=== PATIENT | male | born 1980 | race Caucasian/White ===

== ENCOUNTER 2023-06-27 18:51 | Emergency (ER) | payer SELFPAY ==
--- NOTE | ~2023-06-27 | CT_ITS ---
EXAMINATION: CT head/brain wo IV con CLINICAL INFORMATION: Reason for Exam change in mental status COMPARISON: None. TECHNIQUE: Contiguous axial imaging was performed from the skull base to vertex without intravenous contrast. Sagittal and coronal reformatted images were obtained. This CT examination was performed using dose optimization techniques as appropriate, variously including the following: * Automated exposure control * Adjustment of mA and/or kV according to patient size (this includes techniques or standardized protocols for targeted exams where dose is matched to indication/reason for exam; i.e. extremities or head) Use of iterative reconstruction technique DLP: 715 mGy-cm FINDINGS: The ventricles and sulci are normal in size and configuration without significant volume loss or hydrocephalus. Apparent hypodensity in the right cerebellar white matter is presumably artifactual with streak artifact through this region. No territorial loss of sriavstava-white differentiation. No acute intracranial hemorrhage or extra-axial fluid collection. No mass lesion, significant mass effect, or herniation pattern. The orbits are grossly normal. Paranasal sinuses and mastoid air cells are well aerated. Osseous structures are intact. CT/CT head/brain wo IV con IMPRESSION: Apparent hypodensity in the right cerebellar white matter is presumably artifactual with streak artifact through this region. Otherwise, no acute intracranial abnormality. Specifically, no CT evidence of acute intracranial hemorrhage, significant mass effect, hydrocephalus, or large territorial infarction.
--- NOTE | ~2023-06-27 | XR_ITS ---
EXAMINATION: XR HAND, RIGHT CLINICAL INFORMATION: Swelling. Bruising. COMPARISON: None available. TECHNIQUE: PA, lateral, and oblique views of the right hand. FINDINGS: The bones and soft tissues are normal. No fracture. Alignment is anatomic. Joint spaces are maintained. No erosions or soft tissue calcifications. XR/XR hand RT min 3V IMPRESSION: Normal right hand.
[2023-06-27 19:03] VITALS: BP 145/81; PULSE 105; RESP 22; O2SAT 93; BMI 24.4
--- NOTE | 2023-06-27 19:11 | ECG_ITS ---
Test Reason : OVERDOSE Blood Pressure : / mmHG Vent. Rate : 085 BPM Atrial Rate : 085 BPM P-R Int : 186 ms QRS Dur : 086 ms QT Int : 394 ms P-R-T Axes : 072 054 051 degrees QTc Int : 468 ms Normal sinus rhythm Normal ECG No previous ECGs available Referred By: Harriett Rico Electronically Signed By:
--- NOTE | 2023-06-27 19:19 | ED.PSYCH ---
HPI - Psych General Chief Complaint: ETOH/Substance Use Stated Complaint: ?PCP USE,DIAPHORETIC Time Seen by Provider: 06/27/23 18:54 Source: patient and EMS Mode of arrival: EMS Limitations: other (intoxicated) History of Present Illness HPI Narrative: 40 yo male who was found yelling in streets, has crack pipe in his pocket found by me, he admits to smoking reportedly initially was agitated then laid down on the stretcher and was calm with EMS. on arrival to ED he is agitated making odd noises and dancing around. MD complaint: substance abuse Onset (ago): unknown Duration: constant History of same: Yes Relieving factors: none Exacerbating factors: drug use Context: recent drug abuse Associated psychiatric symptoms: none Associated symptoms: denies other symptoms Treatments prior to arrival: physical restraints and other (IVF 250NS) Related Data Allergies Allergy/AdvReac Type Severity Reaction Status Date / Time No Known Allergies Allergy Verified 06/27/23 19:11 Review of Systems Review of Systems: ROS unable to be obtained due to intoxication [facility] Past Medical History Medical History Active substance abuse Social History Social History (Updated 06/27/23 @ 19:21 by Harriett Rico DO) Patient Tobacco Use Status: Current everyday Tobacco user Substance Use Type: Crack/Cocaine and Marijuana Physical Exam Vital Signs: Vital Signs: Last Vital Signs Temp 99.6 F 06/28/23 00:15 Pulse 72 06/28/23 00:15 Resp 18 06/28/23 00:15 BP 110/66 06/28/23 00:15 Pulse Ox 95 06/28/23 00:15 O2 Del Method Nasal Cannula 06/28/23 00:15 O2 Flow Rate 1 06/28/23 00:15 BMI result Body Mass Index 24.4 Appearance: Alert. Oriented X2. Making odd noises, dancing around, calm mild acute distress. Crack pipe in R pocket Eyes: Pupils equal, round and reactive to light. ENT: Pharynx normal. atraumatic Neck: Normal inspection. Neck supple. CVS: Normal heart rate and rhythm. Pulses normal. Respiratory: No respiratory distress. Breath sounds normal. Abdomen: Soft and nontender. Skin: Skin warm and dry. Normal skin color. Normal skin turgor. Extremities: No lower extremity edema. R hand contusions to MCPs normal ROM Neuro: Oriented X2. No motor deficit. No sensory deficit. Course Course Course Narrative: improved after IV ativan Reevaluation(s) Reevaluation #1: BS low IV dextrose ordered along with gtt Reevaluation #2: CPK trending down Reevaluation #3: signed out to Dr. Patton pending re-eval Medications Administered Generic Name Dose Route Start Last Admin Trade Name Freq PRN Reason Stop Dose Admin Dextrose 250 mls @ 750 mls/hr 06/27/23 20:01 06/27/23 20:32 D10 IV Infused Q15M PRN Infusion per Hypoglycemia Standing Ord. Dextrose/Sodium Chloride 1,000 mls @ 100 mls/hr 06/27/23 20:15 06/27/23 20:29 D5ns IVCONT 100 mls/hr .Q10H LUCÍA Administration Discontinued Medications Generic Name Dose Route Start Last Admin Trade Name Freq PRN Reason Stop Dose Admin Sodium Chloride 1,000 mls @ 999 mls/hr 06/27/23 19:15 06/27/23 20:32 Ns IV 06/27/23 20:15 Infused .Q1H1M LUCÍA Infusion Sodium Chloride 1,000 mls @ 999 mls/hr 06/27/23 20:15 06/27/23 21:35 Ns IV 06/27/23 21:15 Infused .Q1H1M LUCÍA Infusion Lorazepam 2 mg 06/27/23 19:11 06/27/23 19:25 Lorazepam 2 Mg/Ml Vial IVPUSH 06/27/23 19:12 2 mg ONCE ONE Administration Lorazepam 2 mg 06/27/23 21:50 06/27/23 22:22 Lorazepam 2 Mg/Ml Vial IVPUSH 06/27/23 21:51 2 mg ONCE ONE Administration Medical Decision Making Medical Decision Making MDM Narrative: 40 yo male with drug use no signs of head trauma able to answer questions though intoxicated at this time given crack pipe found on him and agitation I am going to order labs, IVF and IV ativan to prevent any further harm or issues. Suspect intoxication from either crack or PCP. Differential Diagnosis Differential Diagnoses: The differential diagnosis associated with the presentation includes drug abuse Admission/Observation Consideration of admission/observation: Escalation of care including admission/observation considered observe until patient more clinically sober and appropriate physician observation started at 1am pending sobriety Lab Data [facility] Lab Attestation statement: I reviewed the patient's lab results. 06/27/23 19:31 06/27/23 19:31 Labs: Lab Results 06/27/23 06/27/23 06/28/23 Range/Units 19:31 20:36 00:40 WBC 12.1 H (4.8-10.8) X10*3/uL RBC 4.54 L (4.60-5.80) X10*6/uL Hgb 13.9 L (14.0-18.0) g/dl Hct 41.8 L (42.0-52.0) % MCV 92.1 (80.0-98.0) fL MCH 30.6 (27.0-33.0) pg MCHC 33.3 (31.0-36.0) g/dl RDW 12.6 (11.0-16.0) % Plt Count 308 (160-400) X10*3/uL MPV 8.5 L (9.4-12.4) fL Immature Gran % (Auto) 0.4 (0.0-0.4) % Neut % (Auto) 69.0 (45-73) % Lymph % (Auto) 20.3 (20-40) % [place] % (Auto) 8.7 (2-11) % Eos % (Auto) 1.4 (0-4) % Baso % (Auto) 0.2 (0-2) % Lymph # (Auto) 2.5 (1.2-4.9) X10*3/uL [place] # (Auto) 1.1 (0.1-1.2) X10*3/uL Eos # (Auto) 0.2 (0.0-0.4) X10*3/uL Baso # (Auto) 0.0 (0.0-0.2) X10*3/uL Abs Immat Gran (auto) 0.05 H (0.00-0.03) X10*3/uL Absolute Neuts (auto) 8.4 H (2.0-8.3) x10*3/uL Absolute Nucleated RBC 0.000 (0.0-0.012) X10*3/uL Nucleated RBC % (auto) 0.0 (0.0-0.2) /100WBC Sodium 142 (135-145) mmol/L Potassium 4.4 (3.3-5.1) mmol/L Chloride 102 (96-108) mmol/L Carbon Dioxide 27 (22-29) mmol/L Anion Gap 17 (12-20) BUN 17 H (9-16) mg/dL Creatinine 1.00 (0.5-1.4) mg/dL Estim Creat Clear Calc 104.5 Estimated GFR > 60 POC Glucose 126 H (60-115) mg/dL Random Glucose 41 L* (60-115) mg/dL Calcium 9.9 (8.4-10.2) mg/dL Magnesium 2.2 (1.6-2.6) mg/dL Total Bilirubin 0.9 (0.0-1.0) mg/dL Direct Bilirubin 0.3 (0.0-0.5) mg/dL AST 46 H (5-37) U/L ALT 17 (0-40) U/L Alkaline Phosphatase 50 (39-117) U/L Total Creatine Kinase 1206 H 918 H (38-174) U/L Total Protein 8.2 H (6.5-8.0) g/dL Albumin 4.6 (3.5-5.0) g/dL Ethyl Alcohol < 10 mg/dL Independent Interpretation I performed an independent interpretation of an: EKG, Plain X-Ray (no fracture) and CT Scan (no ICH) Interpretation: Rate: 85 Rhythm: NSR [place]: normal Normal P waves. Normal SABA. Normal QRS complex. ST T wave : normal no [place] qTC: 468 prior studies: no acute ischemia The study has been interpreted contemporaneously by me. . Radiology Impression Discussion of test interpretation with radiology: I have reviewed the radiologist's reading. Independent Historian Clinical information obtained from an independent historian. History obtained from or confirmed by: EMS Critical Care Time Critical Care Time Critical Care Time: Yes Total Critical Care Time: 60 Attestation: repeat IV ativan for control of abnormal behaviors, IV glucose repletions, IVF x 2L, repeat assessments I attest to this time spent taking care of the patient Discharge Plan Discharge Clinical Impression: Polysubstance abuse, Hypoglycemia Rhabdomyolysis Qualifiers: Rhabdomyolysis type: non-traumatic Qualified Code(s): M62.82 - Rhabdomyolysis Patient Disposition: Still a Patient
[2023-06-27] MEDS: LORazepam 2 MG/ML VIAL IVPUSH ×2 (19:25→22:22)
[2023-06-27] MEDS: 0.9 % Sodium Chloride 1,000 ML 999 ML IV ×2 (19:32→20:29)
--- NOTE | 2023-06-27 19:33 | PC.NURSE ---
pt yelling, jumping on and off the stretcher. pt medicated per MAR, IV placed to LAC. labs obtained, NS started
[2023-06-27 19:35] LABS: MANUAL DIFF FLAG NO
[2023-06-27 19:36] LABS: Basophils Percent Auto 0.2 % (0-2); Eosinophils Absolute Auto 0.2 X10*3/uL (0.0-0.4); Eosinophils Percent Auto 1.4 % (0-4); Hematocrit 41.8 % (42.0-52.0); Hemoglobin 13.9 g/dl (14.0-18.0); Imm Gran Abs Auto 0.05 X10*3/uL (0.00-0.03); Imm Gran Pct Auto 0.4 % (0.0-0.4); Lymphocytes Absolute Auto 2.5 X10*3/uL (1.2-4.9); Lymphocytes Percent Auto 20.3 % (20-40); Mean Corpuscular HGB Conc 33.3 g/dl (31.0-36.0); Mean Corpuscular Hemoglobin 30.6 pg (27.0-33.0); Mean Corpuscular Volume 92.1 fL (80.0-98.0); Mean Platelet Volume 8.5 fL (9.4-12.4); Monocytes Absolute Auto 1.1 X10*3/uL (0.1-1.2); Monocytes Percent Auto 8.7 % (2-11); Neutrophils Absolute Auto 8.4 x10*3/uL (2.0-8.3); Platelet Count 308 X10*3/uL (160-400); Red Blood Count 4.54 X10*6/uL (4.60-5.80); Red Cell Distribution Width 12.6 % (11.0-16.0); White Blood Count 12.1 X10*3/uL (4.8-10.8)
--- NOTE | 2023-06-27 19:56 | PC.NURSE ---
place pt on 2L NC. 91% on RA. 2L 02 98%
[2023-06-27 19:59] VITALS: BP 108/54; PULSE 95; RESP 20; O2SAT 98
[2023-06-27 20:02] LABS: Alanine Aminotransferase 17 U/L (0-40); Albumin Level 4.6 g/dL (3.5-5.0); Alkaline Phosphatase 50 U/L (39-117); Anion Gap 17 (12-20); Aspartate Amino Transferase 46 U/L (5-37); Bilirubin Direct 0.3 mg/dL (0.0-0.5); Bilirubin Total 0.9 mg/dL (0.0-1.0); Blood Urea Nitrogen 17 mg/dL (9-16); Calcium 9.9 mg/dL (8.4-10.2); Carbon Dioxide 27 mmol/L (22-29); Chloride 102 mmol/L (96-108); Creatinine Clr Calc Pharmacy 104.5; Estimated Glomerular Filt Rate > 60; Ethanol < 10 mg/dL; Glucose Random 41 mg/dL (60-115); Magnesium 2.2 mg/dL (1.6-2.6); Potassium 4.4 mmol/L (3.3-5.1); Sodium 142 mmol/L (135-145); Total Protein 8.2 g/dL (6.5-8.0)
[2023-06-27] MEDS: Dextrose 10 % 250 ML 750 ML IV (20:04)
--- NOTE | 2023-06-27 20:19 | PC.NURSE ---
pt at CT/XR
[2023-06-27] MEDS: Dextrose 5 % and 0.9 % NaCl 1,000 ML 100 ML IVCONT (20:29)
[2023-06-27 20:40] LABS: Glucose, Whole Blood 126 mg/dL (60-115)
[2023-06-27 21:02] VITALS: BP 110/62; PULSE 82; RESP 18; O2SAT 96
--- NOTE | 2023-06-27 21:52 | PC.NURSE ---
pt awake, yelling and flailing limbs. pt settled down after a few minutes, now resting with eyes closed, breathing even and unlabored 2L nc. no distress noted
[2023-06-27 23:00] VITALS: BP 109/65; PULSE 80; RESP 20; O2SAT 95
[2023-06-28] VITALS (8 sets, daily range): BP systolic 105–120; BP diastolic 60–81; PULSE 66–96; RESP 14–19; TEMP 36.7–37.6; O2SAT 95–100
--- NOTE | 2023-06-28 02:28 | PC.NURSE ---
pt resting comfortably with eyes closed, breathing even and unlabored, no apparent distress noted. call ambriz w/in reach
--- NOTE | 2023-06-28 06:15 | MHC.EDTECH ---
pt scratched his arm, IV was removed by pt, he stated that it was bothering him. Charge nurse was made aware. Pt was walked to bathroom and was able to converse with this tech, nurses and registration.
--- NOTE | 2023-06-28 06:19 | PC.NURSE ---
CIWA completed. pt awake and denies alcohol use, report heroin use and marijuana only
[2023-06-28 06:29] LABS: Amphetamine Screen Urine Not Detected (Not Detect); Barbiturates, Urine Not Detected (Not Detect); Benzodiazepines Screen Urine Not Detected (Not Detect); Buprenorphine Scr Positive (Not Detect); Cannabinoid Screen Urine POSITIVE (Not Detect); Cocaine Screen Urine POSITIVE (Not Detect); Fentanyl, urine POSITIVE (Not Detect); Methadone Screen, Urine Not Detected (Not Detect); Opiate Screen Urine POSITIVE (Not Detect); Oxycodone Screen Urine Not Detected (Not Detect); Phencyclidine Screen Urine Not Detected (Not Detect)
[2023-06-28 07:01] LABS: Glucose, Whole Blood 67 mg/dL (60-115)
--- NOTE | 2023-06-28 07:02 | PC.NURSE ---
no IV assess at this time. pt removed IV
[2023-06-28] MEDS: Dextrose 5 % and 0.9 % NaCl 1,000 ML 100 ML IVCONT (07:19)
--- NOTE | 2023-06-28 07:22 | PC.NURSE ---
Resumed care of patient, was told that he has self removed multiple IV throughout the night. This RN talked with provider, and d/t lab work new IV placed to continue D5NS per MAR order. Pt awoke to name, was able to answer some questions this morning. He did not know where he was or what hapopened last night, pt reports using polysubstances for years, this RN asked if he would be interested in talking with someone about detox however pt said no. PO food offered and brought to patient at this time. IV wrapped in gauze pt educated to not remove IV.
[2023-06-28 09:54] LABS: Glucose, Whole Blood 78 mg/dL (60-115)
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
[2023-06-28] MEDS: Buprenorphine/Naloxone 8/2 mg FILM 1 FILM SUBLINGUAL ×2 (14:47)
[2023-06-28 15:27] LABS: Alanine Aminotransferase 12 U/L (0-40); Albumin Level 3.4 g/dL (3.5-5.0); Alkaline Phosphatase 40 U/L (39-117); Anion Gap 12 (12-20); Aspartate Amino Transferase 28 U/L (5-37); Bilirubin Total 0.6 mg/dL (0.0-1.0); Blood Urea Nitrogen 7 mg/dL (9-16); Calcium 8.3 mg/dL (8.4-10.2); Carbon Dioxide 23 mmol/L (22-29); Chloride 109 mmol/L (96-108); Creatinine Clr Calc Pharmacy 148.5; Estimated Glomerular Filt Rate > 60; Glucose Random 87 mg/dL (60-115); Potassium 3.5 mmol/L (3.3-5.1); Sodium 140 mmol/L (135-145); Total Protein 6.2 g/dL (6.5-8.0)
--- NOTE | 2023-06-28 15:51 | MHC.RECOVRN ---
Followed up with pt after Suboxone initiation. Pt visibly less diaphoretic, reports feeling better. Pt requesting to discharge. Pt provided with [facility] information, has follow up appt on 07/02 at 1:45PM. Pt denies questions or concerns. Discussed with provider, rx sent to pharmacy.
--- NOTE | 2023-06-28 15:54 | PC.NURSE ---
assumed care of pt at 1500. pt requesting to go home. ripped out IV with D5NS running. pt awaiting retrieving belongings from .
== END 2023-06-28 15:58 | disposition home or self-care (01) ==
PROVIDERS: Physician Assistant Medical; Emergency Provider Emergency Medicine
DX: F14.188 Cocaine abuse with other cocaine-induced disorder (principal); M62.82 Rhabdomyolysis; R51.9 Headache, unspecified; R11.2 Nausea with vomiting, unspecified; E16.2 Hypoglycemia, unspecified; F14.10 Cocaine abuse, uncomplicated; F12.10 Cannabis abuse, uncomplicated; F17.210 Nicotine dependence, cigarettes, uncomplicated; Z79.899 Other long term (current) drug therapy; Z71.51 Drug abuse counseling and surveillance of drug abuser; Z79.891 Long term (current) use of opiate analgesic
CPT/HCPCS: 36415; 70450; 73130; 80048; 80053; 80076; 80307; 82550; 82947; 83735; 85025; 93005; 96361; 96365; 96366; 96375; 96376; 99285; J2060

== ENCOUNTER 2023-07-02 13:09 | Emergency (ER) | payer SELFPAY ==
--- NOTE | ~2023-07-02 | CT_ITS ---
EXAMINATION: CT HEAD WITHOUT CONTRAST CLINICAL INFORMATION: Head injury. COMPARISON: None available. TECHNIQUE: Contiguous axial imaging was performed from the skull base to vertex without intravenous administration of contrast. This CT examination was performed using dose optimization techniques as appropriate, variously including the following: *Automated exposure control *Adjustment of mA and/or kV according to patient size (this includes techniques or standardized protocols for targeted exams where dose is matched to indication/reason for exam; i.e. extremities or head) *Use of iterative reconstruction technique DLP: 632 mGy-cm FINDINGS: There is no acute intracranial hemorrhage. There is no evidence of acute/subacute cerebral or cerebellar infarction. There is no mass effect or midline shift. There is no extra-axial fluid collection. The ventricles are normal in size. The orbits are symmetric and within normal limits. The calvarium is intact. The mastoid air cells are well aerated. The visualized paranasal sinuses are clear. CT/CT head/brain wo IV con IMPRESSION: Normal noncontrast head CT. No acute intracranial abnormality.
--- NOTE | ~2023-07-02 | CT_ITS ---
EXAMINATION: CT CERVICAL SPINE WITHOUT CONTRAST CLINICAL INFORMATION: Head trauma. Altered mental state. COMPARISON: None available. TECHNIQUE: Noncontrast CT of the cervical spine was performed. This CT examination was performed using dose optimization techniques as appropriate, variously including the following: *Automated exposure control *Adjustment of mA and/or kV according to patient size (this includes techniques or standardized protocols for targeted exams where dose is matched to indication/reason for exam; i.e. extremities or head) *Use of iterative reconstruction technique DLP: 267 mGy-cm FINDINGS: Vertebral body alignment is anatomic in the sagittal projection. The facet joints demonstrate anatomic alignment. Vertebral bodies demonstrate preserved stature. There is no evidence of compression deformity. There are anterior osteophytes arising from the C3, C4, and C5 vertebral bodies. Intervertebral disc space heights are preserved. The prevertebral soft tissue is normal in appearance. The C1-C2 relationship is anatomic. The dens is intact. The paraspinal soft tissue is normal in appearance. The visualized lung apices are clear. The thyroid gland is normal in appearance. CT/CT cervical spine wo IV con IMPRESSION: No acute osseous cervical spine abnormality. There is mild degenerative disease as described. Fleischner guidelines were followed.
[2023-07-02 13:10] VITALS: BP 135/76; PULSE 76; O2SAT 98
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
[2023-07-02 13:22] VITALS: BMI 21.0
[2023-07-02] MEDS: Midazolam HCl 5 MG/ML VIAL 10 MG IM (13:36)
[2023-07-02] MEDS: OLANZapine 10 MG VIAL IM (13:36)
[2023-07-02 14:02] VITALS: BP 138/86; PULSE 89; RESP 15; TEMP 37.9; O2SAT 99
--- NOTE | 2023-07-02 14:04 | MHC.EDTECH ---
pt came in with a head laceration. MD requested head to be cleaned for examination. Cleaned wound and MD stapled head laceration. pt cleaned up further after darcy.
[2023-07-02 14:24] LABS: MANUAL DIFF FLAG NO
[2023-07-02 14:27] LABS: Basophils Percent Auto 0.1 % (0-2); Eosinophils Percent Auto 0.1 % (0-4); Hematocrit 38.6 % (42.0-52.0); Hemoglobin 13.2 g/dl (14.0-18.0); Imm Gran Abs Auto 0.09 X10*3/uL (0.00-0.03); Imm Gran Pct Auto 0.5 % (0.0-0.4); Lymphocytes Absolute Auto 1.3 X10*3/uL (1.2-4.9); Lymphocytes Percent Auto 7.6 % (20-40); Mean Corpuscular HGB Conc 34.2 g/dl (31.0-36.0); Mean Corpuscular Hemoglobin 30.5 pg (27.0-33.0); Mean Corpuscular Volume 89.1 fL (80.0-98.0); Mean Platelet Volume 8.7 fL (9.4-12.4); Monocytes Absolute Auto 1.3 X10*3/uL (0.1-1.2); Monocytes Percent Auto 7.8 % (2-11); Neutrophils Absolute Auto 14.3 x10*3/uL (2.0-8.3); Neutrophils Percent Auto 83.9 % (45-73); Platelet Count 287 X10*3/uL (160-400); Red Blood Count 4.33 X10*6/uL (4.60-5.80); Red Cell Distribution Width 12.2 % (11.0-16.0); White Blood Count 17.1 X10*3/uL (4.8-10.8)
[2023-07-02 14:48] LABS: Ethanol < 10 mg/dL
[2023-07-02 14:51] LABS: Alanine Aminotransferase 38 U/L (0-40); Albumin Level 4.2 g/dL (3.5-5.0); Alkaline Phosphatase 48 U/L (39-117); Anion Gap 21 (12-20); Aspartate Amino Transferase 125 U/L (5-37); Bilirubin Direct 0.3 mg/dL (0.0-0.5); Bilirubin Total 1.1 mg/dL (0.0-1.0); Blood Urea Nitrogen 23 mg/dL (9-16); Calcium 9.6 mg/dL (8.4-10.2); Carbon Dioxide 24 mmol/L (22-29); Chloride 100 mmol/L (96-108); Creatinine Clr Calc Pharmacy 82.7; Estimated Glomerular Filt Rate > 60; Glucose Random 82 mg/dL (60-115); Potassium 3.9 mmol/L (3.3-5.1); Sodium 141 mmol/L (135-145); Total Protein 7.5 g/dL (6.5-8.0)
--- NOTE | 2023-07-02 16:32 | PC.NURSE ---
MD Kincaid repaired scalp laceration w/ 3 darcy, pt tolerated procedure well after medication administration- labs obtained, CT scan taken. spO2 monitor in place Spo2 100% 68bpm
[2023-07-02 21:07] VITALS: BP 154/80; PULSE 69; RESP 16; TEMP 38.1; O2SAT 96
--- NOTE | 2023-07-02 21:51 | PC.NURSE ---
pt remains in emergency dept, pt has been sleeping since administration of versed and zyprexa, pt rousable to verbal/ tactile stimuli, cooperative with care. pt minimally contributory for assessments. assessments delayed until pt is more awake.
[2023-07-02 23:39] VITALS: BP 133/73; PULSE 73; RESP 16; TEMP 37.2; O2SAT 99
--- NOTE | 2023-07-03 01:02 | PC.NURSE ---
pt resting quietly with eyes closed, breathing even and unlabored. no apparent distress noted at this time
[2023-07-03 02:56] VITALS: BP 146/74; PULSE 82; RESP 16; TEMP 36.9; O2SAT 100
[2023-07-03 04:12] LABS: Appearance Urine Clear; Color Urine Yellow; Glucose Urine UA Negative (Negative); Leukocyte Esterase Urine Negative (Negative); Nitrite Urine Negative (Negative); PH 5.5 (5.0-9.0); Specific Gravity - Urine >= 1.030 (1.005-1.025); UMIC TRIGGER UACC YES; Urine Blood Negative (Negative); Urine Ketones 80 mg/dL (Negative); Urine Protein 30 (1+) mg/dL (Neg-Trace)
[2023-07-03 04:16] LABS: Bacteria Urine None Seen (None Seen); Hyaline Casts Urine 0-2 /LPF (0-2); RBC Urine 0-2 /HPF (0-2); Squamous Epithelial Cell Urine 0-2 /HPF (0-2); WBC Urine 0-5 /HPF (0-5)
--- NOTE | 2023-07-03 04:16 | MHC.EDTECH ---
Pt up to bathroom, urine sample obtained and sent to lab. Pts stretcher cleaned with new linen. OK to eat per RN and Pt given sandwich and 2 apple juices.
[2023-07-03 04:22] LABS: Amphetamine Screen Urine Not Detected (Not Detect); Barbiturates, Urine Not Detected (Not Detect); Benzodiazepines Screen Urine POSITIVE (Not Detect); Buprenorphine Scr Positive (Not Detect); Cannabinoid Screen Urine POSITIVE (Not Detect); Cocaine Screen Urine POSITIVE (Not Detect); Fentanyl, urine POSITIVE (Not Detect); Methadone Screen, Urine Not Detected (Not Detect); Opiate Screen Urine POSITIVE (Not Detect); Oxycodone Screen Urine Not Detected (Not Detect); Phencyclidine Screen Urine Not Detected (Not Detect)
[2023-07-03 05:08] VITALS: BP 125/73; PULSE 78; RESP 16; TEMP 37.6; O2SAT 99
--- NOTE | 2023-07-03 06:17 | PC.NURSE ---
pt now awake and answering some questions. denies any pain at this time. no apparent distress
--- NOTE | 2023-07-03 06:45 | PC.NURSE ---
pt jumping around on the bed, c/o being dizzy
[2023-07-03 08:21] VITALS: BP 125/73; PULSE 78; RESP 16; TEMP 37.6; O2SAT 99
[2023-07-03] MEDS: Naloxone HCl Nasal TAKE HOME 4 MG SPRAY 8 MG NOSTRILALT (08:21)
== END 2023-07-03 08:30 | disposition home or self-care (01) ==
PROVIDERS: Emergency Provider Emergency Medicine
DX: S01.01XA Laceration without foreign body of scalp, initial encounter (principal); X58.XXXA Exposure to other specified factors, initial encounter; R45.1 Restlessness and agitation; F19.120 Other psychoactive substance abuse with intoxication, uncomplicated; F11.20 Opioid dependence, uncomplicated; F17.200 Nicotine dependence, unspecified, uncomplicated; Y93.9 Activity, unspecified; Y92.830 Public park as the place of occurrence of the external cause; Y99.9 Unspecified external cause status
CPT/HCPCS: 12002; 36415; 70450; 72125; 80048; 80076; 80307; 81001; 85025; 96372; 99284; J2250; J2359

== ENCOUNTER 2023-07-07 02:00 | Emergency (ER) | payer SELFPAY ==
[2023-07-07 02:09] VITALS: BP 116/74; PULSE 119; O2SAT 96
[2023-07-07 02:12] VITALS: BMI 24.2
[2023-07-07 02:18] VITALS: BP 125/70; PULSE 110; RESP 20; TEMP 37.1; O2SAT 96
--- NOTE | 2023-07-07 02:18 | ED.GENADULT ---
HPI - General Adult General Chief complaint: General Medical Stated complaint: ETOH SI DRUG USE Time Seen by Provider: 07/07/23 02:15 History of Present Illness HPI narrative: Patient is a 43-year-old male admits to using cocaine and using heroin. Patient states he last used a few hours ago. Patient denies any suicidal homicidal ideation. Stated he just wants to go home. Related Data Previous Rx's ?Medication ?Instructions ?Recorded buprenorphine 8 mg-naloxone 2 mg 2 film buccal Q24H 5 days #10 film 06/28/23 sublingual film (Suboxone) Allergies Allergy/AdvReac Type Severity Reaction Status Date / Time No Known Allergies Allergy Unverified 07/07/23 02:15 Review of Systems Review of Systems: No SI no HI no complaints Yes all other systems are reviewed and are negative [facility] Past Medical History Attestation statement: The following information was validated with the patient. Medical History Active substance abuse Social History Social History Unable to assess alcohol history related to: Unable to respond Patient Tobacco Use Status: Current everyday Tobacco user Smoked in Last 30 Days: Yes Use of substances other than those prescribed or required for medical reasons: Yes Substance Use Type: Heroin Physical Exam ED Vital Signs: BMI result Body Mass Index 24.2 Appearance: Alert. Oriented X3. No acute distress. Eyes: Pupils equal, round and reactive to light. ENT: Pharynx normal. Neck: Normal inspection. Neck supple. No lymph nodes noted. No crepitus CVS: Normal heart rate and rhythm. Pulses normal. Normal S1 and S2 Respiratory: No respiratory distress. Breath sounds normal. No Wheezing. No rales Abdomen: Soft and nontender. No rigidity. No distention. good BS x4 Skin: Skin warm and dry. Normal skin color. Normal skin turgor. Extremities: No lower extremity edema. Neurovascular intact to all extremities. No Lacerations. No Rash Neuro: Oriented X 3. No motor deficit. No sensory deficit. Moving all extermities. No slurred speech Medical Decision Making Medical Decision Making MDM Narrative: Patient awake alert oriented ambulatory with a steady gait is not suicidal not homicidal. Wants to leave. Differential Diagnosis Differential Diagnoses: The differential diagnosis associated with the presentation includes Polysubstance abuse, depression Admission/Observation Consideration of admission/observation: Escalation of care including admission/observation considered Social Determinants Patient?s care significantly limited by Social Determinants of Health including: Alcoholism and drug addiction in family Discharge Plan Discharge Clinical Impression: Polysubstance abuse Patient Disposition: Home, Self-Care Instructions: Polysubstance Abuse (ED) Prescriptions: No Action buprenorphine-naloxone [Suboxone] 8-2 mg film 2 film buccal Q24H 5 Days Qty: 10 0RF Rx Instructions: place 1 film on inside of (each) cheek Referrals: [facility] [Provider Group] - 07/09/23 (Please stop using recreational drugs) Print Language: Amharic
[2023-07-07 02:28] VITALS: BP 125/70; PULSE 110; RESP 20; TEMP 37.1; O2SAT 96
== END 2023-07-07 02:29 | disposition home or self-care (01) ==
PROVIDERS: Emergency Provider Emergency Medicine Emergency Medical Services
DX: F19.10 Other psychoactive substance abuse, uncomplicated (principal); F11.20 Opioid dependence, uncomplicated; F17.200 Nicotine dependence, unspecified, uncomplicated
CPT/HCPCS: 99282; 99284

== ENCOUNTER 2023-07-07 21:15 | Emergency (ER) | payer SELFPAY ==
--- NOTE | ~2023-07-07 | XR_ITS ---
EXAMINATION: XR CHEST CLINICAL INFORMATION: Chest pain. COMPARISON: None available. TECHNIQUE: Frontal view of the chest was obtained. FINDINGS: The cardiomediastinal silhouette is normal. There is no focal lung consolidation or pleural effusion. Multiple apparent old right rib fractures are noted. The soft tissues are unremarkable. XR/XR chest 1V IMPRESSION: No evidence for active cardiopulmonary disease.
--- NOTE | 2023-07-07 21:28 | ECG_ITS ---
Test Reason : chest pain Blood Pressure : / mmHG Vent. Rate : 084 BPM Atrial Rate : 084 BPM P-R Int : 172 ms QRS Dur : 080 ms QT Int : 390 ms P-R-T Axes : 074 062 065 degrees QTc Int : 460 ms Normal sinus rhythm Normal ECG No previous ECGs available Referred By: Isabel Jimenez Electronically Signed By:Servando Peterson
[2023-07-07 21:33] VITALS: BP 130/00; PULSE 90; O2SAT 97; BMI 22.6
--- NOTE | 2023-07-07 21:33 | ED.AMS ---
HPI - Altered Mental Status General Chief Complaint: ETOH/Substance Use Stated Complaint: heroine use -si/hi found naked by PD Time Seen by Provider: 07/07/23 21:24 History of Present Illness HPI narrative: Patient is a 43-year-old male has a long history of heroin abuse. Patient admits to using heroin then getting real agitated over the last few hours. Came to the ED. denies suicidal homicidal ideation. Feeling extremely agitated. Patient unable to give detailed history due to his condition. Related Data Previous Rx's ?Medication ?Instructions ?Recorded buprenorphine 8 mg-naloxone 2 mg 2 film buccal Q24H 5 days #10 film 06/28/23 sublingual film (Suboxone) Allergies Allergy/AdvReac Type Severity Reaction Status Date / Time No Known Allergies Allergy Verified 07/07/23 21:38 Review of Systems Review of Systems: Positive agitation Yes all other systems are reviewed and are negative [facility] Past Medical History Attestation statement: The following information was validated with the patient. Medical History Active substance abuse Social History Social History Unable to assess alcohol history related to: Unable to respond Patient Tobacco Use Status: Current everyday Tobacco user Substance Use Type: Heroin Advance Directives: No Advance Directives Information Provided: No Physical Exam ED Vital Signs: Vital Signs - 24 hr 07/07/23 21:45 07/07/23 22:00 07/07/23 22:15 Temperature 97.8 F Pulse Rate 97 90 90 Respiratory Rate 20 18 18 Blood Pressure 110/66 Pulse Oximetry 96 97 97 Oxygen Delivery Method Room Air Room Air 07/07/23 22:30 07/07/23 22:45 07/08/23 03:19 Temperature Pulse Rate 84 87 71 Respiratory Rate 18 18 18 Blood Pressure 107/66 103/55 L 101/57 L Pulse Oximetry 95 94 97 Oxygen Delivery Method Room Air Room Air Room Air 07/08/23 06:25 Temperature 97.4 F Pulse Rate 75 Respiratory Rate 16 Blood Pressure 121/80 Pulse Oximetry 100 Oxygen Delivery Method Room Air BMI result Body Mass Index 22.6 Appearance: Alert. Oriented to self extremely agitated Eyes: Pupils equal, round and reactive to light. ENT: Pharynx normal. Neck: Normal inspection. Neck supple. No lymph nodes noted. No crepitus CVS: Normal heart rate and rhythm. Pulses normal. Normal S1 and S2 Respiratory: No respiratory distress. Breath sounds normal. No Wheezing. No rales Abdomen: Soft and nontender. No rigidity. No distention. good BS x4 Skin: Skin warm and dry. Normal skin color. Normal skin turgor. Extremities: No lower extremity edema. Neurovascular intact to all extremities. No Lacerations. No Rash Neuro: Oriented X 1. No motor deficit. Agitated moving all around Medications Administered Discontinued Medications Generic Name Dose Route Start Last Admin Trade Name Freq PRN Reason Stop Dose Admin Diphenhydramine HCl 25 mg 07/07/23 21:27 07/07/23 21:44 Diphenhydramine Hcl 50 Mg/Ml Vial IM 07/07/23 21:28 25 mg ONCE ONE Administration Haloperidol Lactate 5 mg 07/07/23 21:27 07/07/23 21:44 Haloperidol Lactate 5 Mg/Ml Vial IM 07/07/23 21:28 5 mg STAT STA Administration Sodium Chloride 1,000 mls @ 999 mls/hr 07/07/23 21:30 07/07/23 23:40 Ns IV 07/07/23 22:30 Infused .Q1H1M LUCÍA Infusion Sodium Chloride 1,000 mls @ 999 mls/hr 07/07/23 23:00 07/08/23 00:35 Ns IV 07/08/23 00:00 Infused .Q1H1M LUCÍA Infusion Sodium Chloride 1,000 mls @ 999 mls/hr 07/07/23 23:00 07/07/23 23:33 Ns IV 07/08/23 00:00 Not Given .Q1H1M LUCÍA Sodium Chloride 1,000 mls @ 999 mls/hr 07/08/23 03:15 07/08/23 04:24 Ns IV 07/08/23 04:15 Infused .Q1H1M LUCÍA Infusion Lorazepam 2 mg 07/07/23 21:27 07/07/23 21:44 Lorazepam 2 Mg/Ml Vial IM 07/07/23 21:28 2 mg ONCE ONE Administration Medical Decision Making Medical Decision Making MDM Narrative: Question drug induced. Patient extremely agitated. Danger to self and to others. Haldol Ativan Benadryl was given. Will monitor very carefully. Labs ordered will give IV fluids. Will check for rhabdo. Patient's initial CPK was over 2700. Multiple L of IV fluid was given overnight. Patient's CPK is now less than 1700. Patient is now calm. Not suicidal not homicidal. Admits to using recreational drugs. Will discharge patient home after approximately 8 hours of monitoring. Currently in stable condition. Differential Diagnosis Differential Diagnoses: The differential diagnosis associated with the presentation includes Recreational drug use altered mental status rhabdomyolysis, Admission/Observation Consideration of admission/observation: Escalation of care including admission/observation considered Lab Data MDM Lab Attestation statement: I reviewed the patient's lab results. 07/07/23 22:28 07/07/23 22:28 Labs: Lab Results 07/07/23 07/08/23 07/08/23 Range/Units 22:28 02:22 05:41 WBC 10.1 (4.8-10.8) X10*3/uL RBC 4.08 L (4.60-5.80) X10*6/uL Hgb 12.3 L (14.0-18.0) g/dl Hct 37.1 L (42.0-52.0) % MCV 90.9 (80.0-98.0) fL MCH 30.1 (27.0-33.0) pg MCHC 33.2 (31.0-36.0) g/dl RDW 12.5 (11.0-16.0) % Plt Count 226 (160-400) X10*3/uL MPV 9.7 (9.4-12.4) fL Immature Gran % (Auto) 0.3 (0.0-0.4) % Neut % (Auto) 73.3 H (45-73) % Lymph % (Auto) 15.9 L (20-40) % [place] % (Auto) 8.6 (2-11) % Eos % (Auto) 1.4 (0-4) % Baso % (Auto) 0.5 (0-2) % Lymph # (Auto) 1.6 (1.2-4.9) X10*3/uL [place] # (Auto) 0.9 (0.1-1.2) X10*3/uL Eos # (Auto) 0.1 (0.0-0.4) X10*3/uL Baso # (Auto) 0.1 (0.0-0.2) X10*3/uL Abs Immat Gran (auto) 0.03 (0.00-0.03) X10*3/uL Absolute Neuts (auto) 7.4 (2.0-8.3) x10*3/uL Absolute Nucleated RBC 0.000 (0.0-0.012) X10*3/uL Nucleated RBC % (auto) 0.0 (0.0-0.2) /100WBC Smear Tech's Comments VERIFIED Sodium 141 (135-145) mmol/L Potassium 4.8 D (3.3-5.1) mmol/L Chloride 104 (96-108) mmol/L Carbon Dioxide 25 (22-29) mmol/L Anion Gap 17 (12-20) BUN 21 H (9-16) mg/dL Creatinine 0.90 (0.5-1.4) mg/dL Estim Creat Clear Calc 95.0 Estimated GFR > 60 Random Glucose 91 (60-115) mg/dL Calcium 9.1 (8.4-10.2) mg/dL Total Creatine Kinase 2650 H 2007 H 1723 H (38-174) U/L Ethyl Alcohol < 10 mg/dL Independent Interpretation I performed an independent interpretation of an: EKG (My interpretation of patient's EKG showed a sinus rhythm heart rate is 80 OK QRS QTC within normal limits is no acute ST segment elevation.) and Plain X-Ray (Patient's chest x-ray was grossly negative there is no acute evidence of pneumonia no pneumothorax) Radiology Impression Discussion of test interpretation with radiology: I have reviewed the radiologist's reading. External Record Review External record reviewed: Inpatient record Chronic Conditions Polysubstance abuse Social Determinants Patient?s care significantly limited by Social Determinants of Health including: Inadequate housing, Low income, Alcoholism and drug addiction in family and Problems related to primary support group Critical Care Time Critical Care Time Critical Care Time: Yes Total Critical Care Time: 40 Attestation: I have personally provided 40 minutes of critical care time exclusive of time spent on separately billable procedures. ?Time includes review of lab data, radiology results, discussion with consultants, and monitoring for potential decompensation. ?Interventions were performed as documented above Discharge Plan Discharge Clinical Impression: Polysubstance abuse Patient Disposition: Home, Self-Care Instructions: Polysubstance Abuse (ED) Prescriptions: No Action buprenorphine-naloxone [Suboxone] 8-2 mg film 2 film buccal Q24H 5 Days Qty: 10 0RF Rx Instructions: place 1 film on inside of (each) cheek Referrals: Physician,Rachel J [Primary Care Provider] - (Please go to detox. Please stop using recreational drugs.) Print Language: New Zealander
[2023-07-07] MEDS: Haloperidol Lactate 5 MG/ML VIAL IM (21:44)
[2023-07-07] MEDS: LORazepam 2 MG/ML VIAL IM (21:44)
[2023-07-07] MEDS: diphenhydrAMINE HCL 50 MG/ML VIAL 25 MG IM (21:44)
[2023-07-07 21:45] VITALS: PULSE 97; RESP 20; O2SAT 96
[2023-07-07 22:00] VITALS: PULSE 90; RESP 18; O2SAT 97
[2023-07-07 22:15] VITALS: BP 110/66; PULSE 90; RESP 18; TEMP 36.6; O2SAT 97
[2023-07-07 22:30] VITALS: BP 107/66; PULSE 84; RESP 18; O2SAT 95
[2023-07-07 22:35] LABS: Basophils Absolute Auto 0.1 X10*3/uL (0.0-0.2); Basophils Percent Auto 0.5 % (0-2); Eosinophils Absolute Auto 0.1 X10*3/uL (0.0-0.4); Eosinophils Percent Auto 1.4 % (0-4); Hematocrit 37.1 % (42.0-52.0); Hemoglobin 12.3 g/dl (14.0-18.0); Imm Gran Abs Auto 0.03 X10*3/uL (0.00-0.03); Imm Gran Pct Auto 0.3 % (0.0-0.4); Lymphocytes Absolute Auto 1.6 X10*3/uL (1.2-4.9); Lymphocytes Percent Auto 15.9 % (20-40); MANUAL DIFF FLAG SCAN; Mean Corpuscular HGB Conc 33.2 g/dl (31.0-36.0); Mean Corpuscular Hemoglobin 30.1 pg (27.0-33.0); Mean Corpuscular Volume 90.9 fL (80.0-98.0); Mean Platelet Volume 9.7 fL (9.4-12.4); Monocytes Absolute Auto 0.9 X10*3/uL (0.1-1.2); Monocytes Percent Auto 8.6 % (2-11); Neutrophils Absolute Auto 7.4 x10*3/uL (2.0-8.3); Neutrophils Percent Auto 73.3 % (45-73); PLT CLUMP 1; Red Blood Count 4.08 X10*6/uL (4.60-5.80); Red Cell Distribution Width 12.5 % (11.0-16.0); SCAN SMEAR FLAG 1
[2023-07-07 22:36] LABS: Platelet Count 226 X10*3/uL (160-400); White Blood Count 10.1 X10*3/uL (4.8-10.8)
[2023-07-07] MEDS: 0.9 % Sodium Chloride 1,000 ML 999 ML IV ×2 (22:37→23:33)
[2023-07-07 22:45] VITALS: BP 103/55; PULSE 87; RESP 18; O2SAT 94
[2023-07-07 22:56] LABS: Anion Gap 17 (12-20); Blood Urea Nitrogen 21 mg/dL (9-16); Calcium 9.1 mg/dL (8.4-10.2); Carbon Dioxide 25 mmol/L (22-29); Chloride 104 mmol/L (96-108); Estimated Glomerular Filt Rate > 60; Ethanol < 10 mg/dL; Glucose Random 91 mg/dL (60-115); Potassium 4.8 mmol/L (3.3-5.1); Sodium 141 mmol/L (135-145)
[2023-07-07 22:57] LABS: SLIDE REVIEW VERIFIED
--- NOTE | 2023-07-07 23:00 | PC.NURSE ---
[place]. Pt reports heroine use x 6 hours ago. Pt flailing/spastic movements to all extremities, not able to stay still, not following basic commands, and climbing over stretcher rails. pt medicated per APR. IV line placed, blood work collected and sent to lab.
[2023-07-08] MEDS: 0.9 % Sodium Chloride 1,000 ML 999 ML IV (03:18)
[2023-07-08 03:19] VITALS: BP 101/57; PULSE 71; RESP 18; O2SAT 97
[2023-07-08 06:25] VITALS: BP 121/80; PULSE 75; RESP 16; TEMP 36.3; O2SAT 100
[2023-07-08 07:15] VITALS: BP 115/73; PULSE 81; RESP 16; TEMP 36.4; O2SAT 99
== END 2023-07-08 07:20 | disposition home or self-care (01) ==
PROVIDERS: Emergency Provider Emergency Medicine Emergency Medical Services
DX: F19.10 Other psychoactive substance abuse, uncomplicated (principal); R45.1 Restlessness and agitation; F11.20 Opioid dependence, uncomplicated; F17.200 Nicotine dependence, unspecified, uncomplicated
CPT/HCPCS: 36415; 71045; 80048; 80307; 82550; 85025; 93005; 96360; 96361; 96372; 99284; 99285; J1200; J1630; J2060

== ENCOUNTER → 2023-07-07 21:28 | Outpatient (BNV) | payer SELFPAY | PROVIDERS: Emergency Provider Emergency Medicine Emergency Medical Services; Visit Provider Internal Medicine Cardiovascular Disease | DX: R07.9 Chest pain, unspecified (principal) | CPT/HCPCS: 93010 ==

== ENCOUNTER 2023-07-24 12:12 | Emergency (ER) | payer SELFPAY ==
[2023-07-24 12:25] VITALS: BP 116/68; BP 117/81; PULSE 70; RESP 20; TEMP 36.2; O2SAT 95; BMI 22.6
[2023-07-24 12:42] LABS: Appearance Urine Clear; Color Urine Dark Yellow; Glucose Urine UA Negative (Negative); Leukocyte Esterase Urine Negative (Negative); Nitrite Urine Negative (Negative); Specific Gravity - Urine >= 1.030 (1.005-1.025); Urine Blood Negative (Negative); Urine Ketones 15 mg/dL (Negative); Urine Protein Trace mg/dL (Neg-Trace)
--- NOTE | 2023-07-24 12:46 | ED.OVERDOSE ---
HPI - Overdose General Chief Complaint: Overdose Stated Complaint: HEROIN USE THIS AM,NO NARCAN GIVEN PER EMS Time Seen by Provider: 07/24/23 12:20 Source: patient, EMS, RN notes reviewed and old records reviewed Mode of arrival: EMS Limitations: no limitations History of Present Illness ED Provider: Cortney Sweet PA-C HPI Narrative: 43-year-old male with history of polysubstance abuse, seen 4 times in June for this presents to the ER via EMS after he was found an alleyway. Patient admits to using half a bag of heroin by sniffing this morning. States he was sleeping on a friend's porch. No narcan used. Patient is alert. States he has plans to obtain insurance and then will pursue detox. MD complaint: accidental overdose Onset (ago): unknown Related Data Previous Rx's ?Medication ?Instructions ?Recorded buprenorphine 8 mg-naloxone 2 mg 2 film buccal Q24H 5 days #10 film 06/28/23 sublingual film (Suboxone) Allergies Allergy/AdvReac Type Severity Reaction Status Date / Time No Known Allergies Allergy Verified 07/24/23 12:28 Review of Systems Review of Systems: Yes all other systems are reviewed and are negative [facility] Past Medical History Medical History Active substance abuse Social History Social History Unable to assess alcohol history related to: Unable to respond Patient Tobacco Use Status: Current everyday Tobacco user Substance Use Type: Heroin Substance Use Frequency: Daily Last Used Substance: Just Prior to Admission Advance Directives: No Do you have a plan to hurt others: No Plan Physical Exam Vital Signs: Vital Signs: Last Vital Signs Temp 97.2 F 07/24/23 12:25 Pulse 70 07/24/23 12:25 Resp 20 07/24/23 12:25 BP 117/81 07/24/23 12:25 Pulse Ox 95 07/24/23 12:25 O2 Del Method Room Air 07/24/23 12:25 BMI result Body Mass Index 22.6 Appearance: Alert. Oriented X3. No acute distress. Disheveled. Head: normocephalic, atraumatic. Eyes: Pupils equal, round and reactive to light. Neck: Normal inspection. Respiratory: No respiratory distress. Abdomen: Soft and nontender. +BS x4 Skin: Skin warm and dry. Normal skin color. Numerous tattoos. Negative for track johnson Extremities: No lower extremity edema. Neuro/psych: Oriented X 3. CN II-XII grossly intact. Normal speech and cognition. Medical Decision Making Medical Decision Making [facility] Narrative: 43-year-old male with history of polysubstance abuse, seen 4 times in June for this presents to the ER via EMS after he was found an alleyway. States he was sleeping on a friends porch. Patient admits to using heroin and crack cocaine. Urine tox positive for opiates, fentanyl, cocaine, and marijuana. Did not require narcan, patient is alert. Denies SI/HI. He would like to manage his detox plans himself as an outpatient. Stable for discharge. Differential Diagnosis Differential Diagnoses: The differential diagnosis associated with the presentation includes Polysubstance use disorder, opioid overdose, LOC Lab Data [facility] Lab Attestation statement: I reviewed the patient's lab results. Labs: Lab Results 07/24/23 Range/Units 12:35 Urine Color Dark Yellow Urine Appearance Clear Urine pH 7.0 (5.0-9.0) Ur Specific [place] >= 1.030 H (1.005-1.025) Urine Protein Trace (Neg-Trace) mg/dL Urine Glucose (UA) Negative (Negative) mg/dL Urine Ketones 15 (Negative) mg/dL Urine Blood Negative (Negative) Urine Nitrite Negative (Negative) Ur Leukocyte Esterase Negative (Negative) Urine Opiates Screen POSITIVE H (Not Detect) Ur Buprenorphine Scrn Not Detected (Not Detect) ng/mL Ur Oxycodone Screen Not Detected (Not Detect) ng/mL Urine Methadone Screen Not Detected (Not Detect) ng/mL Urine Fentanyl Screen POSITIVE H (Not Detect) Ur Barbiturates Screen Not Detected (Not Detect) Ur Phencyclidine Scrn Not Detected (Not Detect) Ur Amphetamines Screen Not Detected (Not Detect) U Benzodiazepines Scrn Not Detected (Not Detect) Urine Cocaine Screen POSITIVE H (Not Detect) U Marijuana (THC) Screen POSITIVE H (Not Detect) Independent Historian Clinical information obtained from an independent historian. History obtained from or confirmed by: EMS External Record Review External record reviewed: Inpatient record Prescription Management I considered prescription management with: Other (methadone, suboxone) Chronic Conditions Patient?s care impacted by: Other (polysubstance abuse) Social Determinants Patient?s care significantly limited by Social Determinants of Health including: Inadequate housing and Alcoholism and drug addiction in family Critical Care Time Critical Care Time Critical Care Time: No Discharge Plan Discharge Clinical Impression: Polysubstance abuse, Drug overdose Patient Disposition: Home, Self-Care Additional Instructions: You were brought to the ER by EMS after being found in an alley way and thought to be under the influence of drugs. They did not need to use narcan In the ED you were alert. Your urine toxicology report was positive for opiates, fentanyl, cocaine, and marijuana. Prescriptions: No Action buprenorphine-naloxone [Suboxone] 8-2 mg film 2 film buccal Q24H 5 Days Qty: 10 0RF Rx Instructions: place 1 film on inside of (each) cheek Discharge Date/Time: 07/24/23 13:10 Print Language: Swedish
[2023-07-24 12:53] LABS: Amphetamine Screen Urine Not Detected (Not Detect); Barbiturates, Urine Not Detected (Not Detect); Benzodiazepines Screen Urine Not Detected (Not Detect); Buprenorphine Scr Not Detected (Not Detect); Cannabinoid Screen Urine POSITIVE (Not Detect); Cocaine Screen Urine POSITIVE (Not Detect); Fentanyl, urine POSITIVE (Not Detect); Methadone Screen, Urine Not Detected (Not Detect); Opiate Screen Urine POSITIVE (Not Detect); Oxycodone Screen Urine Not Detected (Not Detect); Phencyclidine Screen Urine Not Detected (Not Detect)
--- NOTE | 2023-07-24 13:10 | PC.NURSE ---
patient wanted to be d/c, provided patient with d/c packet and resources, refused vitals. patient is alert and oriented, ambulated off unit with steady gait. respirations 16
== END 2023-07-24 13:10 | disposition home or self-care (01) ==
PROVIDERS: Physician Assistant; Emergency Provider Emergency Medicine
DX: T50.991A Poisoning by other drugs, medicaments and biological substances, accidental (unintentional), initial encounter (principal); R40.4 Transient alteration of awareness; Y92.488 Other paved roadways as the place of occurrence of the external cause; F19.10 Other psychoactive substance abuse, uncomplicated; F11.20 Opioid dependence, uncomplicated; F17.210 Nicotine dependence, cigarettes, uncomplicated
CPT/HCPCS: 80307; 81003; 99284

== ENCOUNTER 2024-02-26 11:16 | Inpatient (IN) | payer MEDICAID, SELFPAY ==
[2024-02-26] VITALS (12 sets, daily range): BP systolic 92–115; BP diastolic 44–85; PULSE 71–148; RESP 16–30; TEMP 36.6–38.9; O2SAT 84–99; BMI 21.9
--- NOTE | ~2024-02-26 | CT_ITS ---
CLINICAL HISTORY: febrile, cough CT chest with contrast Comparison: None Findings: No mediastinal mass or lymphadenopathy. Unremarkable heart and vasculature. Ground-glass opacity in the right upper and middle lobes. Consolidation in the right middle and left lower lobes. No pneumothorax or pleural effusion. No acute osseous or soft tissue abnormality. No acute pathology in the imaged portion of the upper abdomen. 1.5 cm low attenuating lesion in the spleen. Decreased attenuation of the liver. Impression: Multifocal pneumonia. Correlate with chest radiographs and follow up to resolution. This document has been electronically signed by: Vicky Case MD on 02/26/2024 19:33:55
--- NOTE | ~2024-02-26 | CT_ITS ---
CLINICAL HISTORY: febrile, abdominal pain CT abdomen and pelvis with contrast Comparison: None Findings: Consolidation in the right middle and left lower lobes. Unremarkable gallbladder and bladder. Focal fat at the falciform ligament. Low attenuating lesion in the spleen measuring 1.3 cm. Distended bladder, measuring 14.8 cm in craniocaudal dimension. The other solid organs are unremarkable. No bowel wall thickening or dilation. A normal appendix is identified. No aneurysm. Trace calcified atherosclerotic disease. No lymphadenopathy. No ascites. No acute osseous abnormality. Impression: Multifocal pneumonia. Distended bladder. This document has been electronically signed by: Vicky Case MD on 02/26/2024 19:30:48
--- NOTE | 2024-02-26 11:27 | ECG_ITS ---
Test Reason : OVERDOSE Blood Pressure : */* mmHG Vent. Rate : 112 BPM Atrial Rate : 112 BPM P-R Int : 172 ms QRS Dur : 84 ms QT Int : 326 ms P-R-T Axes : 65 66 52 degrees QTcB Int : 444 ms Sinus tachycardia Otherwise normal ECG When compared with ECG of 07-Jul-2023 22:34, No significant change was found Referred By: Chapis Stephens Electronically Signed By: BLU SIGALA
[2024-02-26] MEDS: OLANZapine 10 MG VIAL 5 MG IM (11:42)
[2024-02-26] MEDS: LORazepam 2 MG/ML VIAL IM (11:42)
[2024-02-26] MEDS: diphenhydrAMINE HCL 50 MG/ML VIAL IM (11:42)
--- NOTE | 2024-02-26 11:51 | PC.NURSE ---
patient arrives to ED from ems. arrives yelling, thrashing, hitting himself. patient cooperative with staff. 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 provider at bedside and order for IM medication. security at bedside. meds administered to patient. patient continue behavior for few minutes and then fell asleep. RR even and unlabored at this time.
--- NOTE | 2024-02-26 12:49 | ED.OVERDOSE ---
HPI - Overdose General Chief Complaint: Overdose Stated Complaint: PT YELLING/SCREAMING,WANT TO GET CHECKED,REF VS Time Seen by Provider: 02/26/24 11:25 Source: patient and EMS Mode of arrival: EMS History of Present Illness ED Provider: Kat MCCANN Narrative: 43-year-old male with known polysubstance use disorder is brought in by EMS after he was found having outbursts and states that he used heroin earlier. He denies any shortness of breath or chest pain. He is flailing all over, hitting his head Related Data Previous Rx's ?Medication ?Instructions ?Recorded buprenorphine 8 mg-naloxone 2 mg 2 film buccal Q24H 5 days #10 film 06/28/23 sublingual film (Suboxone) Allergies Allergy/AdvReac Type Severity Reaction Status Date / Time No Known Allergies Allergy Verified 02/26/24 11:29 Review of Systems Review of Systems: Pertinent positives and negatives as stated in HPI PMFSH Past Medical History Source: nursing notes reviewed Medical History Active substance abuse Social History Social History Unable to assess alcohol history related to: Unable to respond Patient Tobacco Use Status: Current everyday Tobacco user Substance Use Type: Heroin Advance Directives: No Physical Exam Vital Signs: Vital Signs: Last Vital Signs Temp 98.1 F 02/26/24 18:15 Pulse 77 02/26/24 18:15 Resp 16 02/26/24 18:15 BP 110/75 02/26/24 18:15 Pulse Ox 96 02/26/24 18:15 O2 Del Method Room Air 02/26/24 18:15 BMI result Body Mass Index 21.9 VITAL SIGNS: Reviewed. GENERAL: Well developed, well nourished, in no acute distress. HEAD: Normocephalic/atraumatic EYES: PERRLA, EOMI EARS: Ext canals without abnormality NOSE: Nares patent bilateral OROPHARYNX: no oral lesions noted, posterior pharynx clear NECK: Supple, no adenopathy LUNGS: Normal breath sounds. No adventitious sounds or accessory muscle use. SpO2<99> CARDIOVASCULAR: Regular rate and rhythm without noted murmurs ABDOMEN: Soft, non-tender, non-distended with bowel sounds. MUSCULOSKELETAL: No tenderness, deformities, or effusions noted on gross inspection. EXTREMITIES: No cyanosis, clubbing or edema. SKIN: Inspection of the skin reveals no rashes, diaphoresis++ NEUROLOGIC: Alert and oriented x 4. Strength and sensation to light touch were grossly intact x 4. Medications Administered Discontinued Medications Generic Name Dose Route Start Last Admin Trade Name Freq PRN Reason Stop Dose Admin Dextrose 25 gm 02/26/24 15:45 02/26/24 15:46 Dextrose 50 % 25 Gm/50 Ml Vial IVPUSH 02/26/24 15:46 25 gm ONCE ONE Administration Diphenhydramine HCl 50 mg 02/26/24 11:35 02/26/24 11:42 Diphenhydramine Hcl 50 Mg/Ml Vial IM 02/26/24 11:36 50 mg ONCE ONE Administration Acetaminophen 1,000 mg in 100 mls @ 400 mls/hr 02/26/24 14:39 02/26/24 15:19 Ofirmev IV 02/26/24 14:53 Infused ONCE ONE Infusion Dextrose 250 mls @ 750 mls/hr 02/26/24 15:35 02/26/24 15:42 D10 IV 02/26/24 15:54 Not Given ONCE ONE Sodium Chloride 1,000 mls @ 999 mls/hr 02/26/24 17:15 02/26/24 17:25 Ns IV 02/26/24 18:15 999 mls/hr .Q1H1M LUCÍA Administration Sodium Chloride 1,000 mls @ 999 mls/hr 02/26/24 17:15 02/26/24 17:25 Ns IV 02/26/24 18:15 999 mls/hr .Q1H1M LUCÍA Administration Piperacillin Sod/Tazobactam 50 mls @ 100 mls/hr 02/26/24 17:04 02/26/24 17:55 Sod 3.375 gm/ Sodium Chloride IV 02/26/24 17:33 Infused ONCE ONE Infusion Lorazepam 2 mg 02/26/24 11:35 02/26/24 11:42 Lorazepam 2 Mg/Ml Vial IM 02/26/24 11:36 2 mg ONCE ONE Administration Olanzapine 5 mg 02/26/24 11:35 02/26/24 11:42 Olanzapine 10 Mg Vial IM 02/26/24 11:36 5 mg ONCE ONE Administration Medical Decision Making Medical Decision Making MDM Narrative: 43-year-old male with history and clinical presentation, DDX: Drug overdose, Had to conduct a restraint on the patient with medication as he was engaging in self-injurious behavior, although able to redirect him for a short period of time, patient is flailing and yelling out and unable to control his actions at this time. Patient was evaluated 1 hour after medication restrained was administered and he no longer requires any further intervention and will be observed. EKG: Sinus tachycardia, HR-112, no STEMI, [place]/QRS/QTC/QTC are within normal limits. 1439: I was informed by nursing that patient had a fever. Decision to pursue full lab workup. 1536: Inform the patient has a glucose of 59, will give patient the equivalent of an amp of D50. 1540: I reviewed and interpreted all remaining investigations, there is an infectious leukocytosis with stable anemia and no thrombocytopenia. There is no demonstrate AMANDA or electrolyte/liver enzyme derangements. CPK is noted to be significantly elevated and patient was treated with IV fluids. I suspect an infection. Viral testing is negative for COVID-19/RSV/influenza. INTERVENTION: IV fluids, lactic acid/blood cultures/antibiotics. PENDING: CT scan chest/abdomen/pelvis, DISPO: Admission Signed out to Dr Patton Differential Diagnosis Differential Diagnoses: The differential diagnosis associated with the presentation includes See above Admission/Observation Consideration of admission/observation: Escalation of care including admission/observation considered Patient meets inpatient level of care for febrile state/leukocytosis as well as rhabdomyolysis. Consult Healthcare Provider Management of the patient was discussed with: Hospitalist See above Lab Data MDM Lab Attestation statement: I reviewed the patient's lab results. See above 02/26/24 15:27 02/26/24 15:14 Labs: Lab Results 02/26/24 02/26/24 02/26/24 Range/Units 14:46 15:14 15:27 WBC 19.8 H (4.8-10.8) X10*3/uL RBC 4.46 L (4.60-5.80) X10*6/uL Hgb 12.7 L (14.0-18.0) g/dl Hct 38.5 L (42.0-52.0) % MCV 86.3 (80.0-98.0) fL MCH 28.5 (27.0-33.0) pg MCHC 33.0 (31.0-36.0) g/dl RDW 12.4 (11.0-16.0) % Plt Count 266 (160-400) X10*3/uL MPV 9.1 L (9.4-12.4) fL Immature Gran % (Auto) 0.8 H (0.0-0.4) % Neut % (Auto) 84.7 H (45-73) % Lymph % (Auto) 7.6 L (20-40) % [place] % (Auto) 6.2 (2-11) % Eos % (Auto) 0.5 (0-4) % Baso % (Auto) 0.2 (0-2) % Lymph # (Auto) 1.5 (1.2-4.9) X10*3/uL [place] # (Auto) 1.2 (0.1-1.2) X10*3/uL Eos # (Auto) 0.1 (0.0-0.4) X10*3/uL Baso # (Auto) 0.0 (0.0-0.2) X10*3/uL Abs Immat Gran (auto) 0.16 H (0.00-0.03) X10*3/uL Absolute Neuts (auto) 16.8 H (2.0-8.3) x10*3/uL Absolute Nucleated RBC 0.000 (0.0-0.012) X10*3/uL Nucleated RBC % (auto) 0.0 (0.0-0.2) /100WBC Sodium 135 (135-145) mmol/L Potassium 3.9 (3.3-5.1) mmol/L Chloride 99 (96-108) mmol/L Carbon Dioxide 24 (22-29) mmol/L Anion Gap 16 (12-20) BUN 22 H (9-16) mg/dL Creatinine 1.05 (0.5-1.4) mg/dL Estim Creat Clear Calc 81.4 Estimated GFR > 60 POC Glucose (60-115) mg/dL Random Glucose 59 L* (60-115) mg/dL Lactic Acid (0.5-2.0) mmol/L Calcium 9.2 (8.4-10.2) mg/dL Total Bilirubin 0.9 (0.0-1.0) mg/dL AST 78 H (5-37) U/L ALT 18 (0-40) U/L Alkaline Phosphatase 51 (39-117) U/L Total Creatine Kinase 2336 H (38-174) U/L Total Protein 7.8 (6.5-8.0) g/dL Albumin 4.1 (3.5-5.0) g/dL Influenza Type A (PCR) NEGATIVE (Negative) Influenza Type B (PCR) NEGATIVE (Negative) RSV RNA Qual (PCR) NEGATIVE (Negative) SARS-CoV-2 RNA (RT-PCR) NEGATIVE (Negative) 02/26/24 02/26/24 02/26/24 Range/Units 16:13 17:14 18:14 WBC (4.8-10.8) X10*3/uL RBC (4.60-5.80) X10*6/uL Hgb (14.0-18.0) g/dl Hct (42.0-52.0) % MCV (80.0-98.0) fL MCH (27.0-33.0) pg MCHC (31.0-36.0) g/dl RDW (11.0-16.0) % Plt Count (160-400) X10*3/uL MPV (9.4-12.4) fL Immature Gran % (Auto) (0.0-0.4) % Neut % (Auto) (45-73) % Lymph % (Auto) (20-40) % [place] % (Auto) (2-11) % Eos % (Auto) (0-4) % Baso % (Auto) (0-2) % Lymph # (Auto) (1.2-4.9) X10*3/uL [place] # (Auto) (0.1-1.2) X10*3/uL Eos # (Auto) (0.0-0.4) X10*3/uL Baso # (Auto) (0.0-0.2) X10*3/uL Abs Immat Gran (auto) (0.00-0.03) X10*3/uL Absolute Neuts (auto) (2.0-8.3) x10*3/uL Absolute Nucleated RBC (0.0-0.012) X10*3/uL Nucleated RBC % (auto) (0.0-0.2) /100WBC Sodium (135-145) mmol/L Potassium (3.3-5.1) mmol/L Chloride (96-108) mmol/L Carbon Dioxide (22-29) mmol/L Anion Gap (12-20) BUN (9-16) mg/dL Creatinine (0.5-1.4) mg/dL Estim Creat Clear Calc Estimated GFR POC Glucose 136 H 58 L* (60-115) mg/dL Random Glucose (60-115) mg/dL Lactic Acid 0.6 (0.5-2.0) mmol/L Calcium (8.4-10.2) mg/dL Total Bilirubin (0.0-1.0) mg/dL AST (5-37) U/L ALT (0-40) U/L Alkaline Phosphatase (39-117) U/L Total Creatine Kinase (38-174) U/L Total Protein (6.5-8.0) g/dL Albumin (3.5-5.0) g/dL Influenza Type A (PCR) (Negative) Influenza Type B (PCR) (Negative) RSV RNA Qual (PCR) (Negative) SARS-CoV-2 RNA (RT-PCR) (Negative) Independent Interpretation I performed an independent interpretation of an: EKG Interpretation: See above Radiology Impression Discussion of test interpretation with radiology: I have reviewed the radiologist's reading. Radiologist Impression: See above External Record Review External record reviewed: Prior outpatient labs and Prior outpatient radiology Social Determinants Patient?s care significantly limited by Social Determinants of Health including: Alcoholism and drug addiction in family Critical Care Time Critical Care Time Critical Care Time: Yes Total Critical Care Time: 45 Attestation: I personally attest to this time spent taking care of the patient. Discharge Plan Discharge Clinical Impression: Polysubstance abuse, Drug overdose, Sepsis, Rhabdomyolysis Patient Disposition: Admitted As Inpatient Print Language: [place]
[2024-02-26] MEDS: Acetaminophen 1,000 MG/100 ML PIGGYBACK 400 MG IV (15:00)
[2024-02-26 15:35] LABS: Alanine Aminotransferase 18 U/L (0-40); Albumin Level 4.1 g/dL (3.5-5.0); Anion Gap 16 (12-20); Aspartate Amino Transferase 78 U/L (5-37); Bilirubin Total 0.9 mg/dL (0.0-1.0); Blood Urea Nitrogen 22 mg/dL (9-16); Calcium 9.2 mg/dL (8.4-10.2); Carbon Dioxide 24 mmol/L (22-29); Chloride 99 mmol/L (96-108); Creatinine Clr Calc Pharmacy 81.4; Estimated Glomerular Filt Rate > 60; Glucose Random 59 mg/dL (60-115); Potassium 3.9 mmol/L (3.3-5.1); Sodium 135 mmol/L (135-145); Total Protein 7.8 g/dL (6.5-8.0)
[2024-02-26 15:38] LABS: Basophils Percent Auto 0.2 % (0-2); Eosinophils Absolute Auto 0.1 X10*3/uL (0.0-0.4); Eosinophils Percent Auto 0.5 % (0-4); Hematocrit 38.5 % (42.0-52.0); Hemoglobin 12.7 g/dl (14.0-18.0); Imm Gran Abs Auto 0.16 X10*3/uL (0.00-0.03); Imm Gran Pct Auto 0.8 % (0.0-0.4); Lymphocytes Absolute Auto 1.5 X10*3/uL (1.2-4.9); Lymphocytes Percent Auto 7.6 % (20-40); Mean Corpuscular Hemoglobin 28.5 pg (27.0-33.0); Mean Corpuscular Volume 86.3 fL (80.0-98.0); Mean Platelet Volume 9.1 fL (9.4-12.4); Monocytes Absolute Auto 1.2 X10*3/uL (0.1-1.2); Monocytes Percent Auto 6.2 % (2-11); Neutrophils Absolute Auto 16.8 x10*3/uL (2.0-8.3); Neutrophils Percent Auto 84.7 % (45-73); Platelet Count 266 X10*3/uL (160-400); Red Blood Count 4.46 X10*6/uL (4.60-5.80); Red Cell Distribution Width 12.4 % (11.0-16.0); White Blood Count 19.8 X10*3/uL (4.8-10.8)
[2024-02-26 15:51] LABS: Influenza A PCR NEGATIVE (Negative); Influenza B PCR NEGATIVE (Negative); Resp Syncy Virus RNA Qual PCR NEGATIVE (Negative); SARS COV2 PCR INHOUSE NEGATIVE (Negative)
[2024-02-26 16:15] LABS: Glucose, Whole Blood 136 mg/dL (60-115)
[2024-02-26] MEDS: Piperacillin Sodium/Tazobactam 3.375 GM in 0.9 % Sodium Chloride 50 ML IV (17:25)
[2024-02-26] MEDS: 0.9 % Sodium Chloride 1,000 ML 999 ML IV ×2 (17:25)
[2024-02-26 17:28] LABS: Alkaline Phosphatase 51 U/L (39-117)
[2024-02-26 17:32] LABS: Lactic Acid 0.6 mmol/L (0.5-2.0)
[2024-02-26 18:17] LABS: Glucose, Whole Blood 58 mg/dL (60-115)
[2024-02-26 18:32] LABS: Glucose, Whole Blood 174 mg/dL (60-115)
[2024-02-26] MEDS: iohexoL 350 MG/ML 100 ML INFUS..BTL IV (18:46)
[2024-02-26 19:12] LABS: Appearance Urine Clear; Color Urine Yellow; Glucose Urine UA 100 mg/dL (Negative); Leukocyte Esterase Urine Negative (Negative); Nitrite Urine Negative (Negative); PH 5.5 (5.0-9.0); Specific Gravity - Urine >= 1.030 (1.005-1.025); Urine Blood Negative (Negative); Urine Ketones 40 mg/dL (Negative); Urine Protein Trace mg/dL (Neg-Trace)
[2024-02-26 19:22] LABS: Glucose, Whole Blood 51 mg/dL (60-115)
[2024-02-26 19:30] LABS: Amphetamine Screen Urine Not Detected (Not Detect); Barbiturates, Urine Not Detected (Not Detect); Benzodiazepines Screen Urine Not Detected (Not Detect); Buprenorphine Scr Not Detected (Not Detect); Cannabinoid Screen Urine POSITIVE (Not Detect); Cocaine Screen Urine POSITIVE (Not Detect); Fentanyl, urine POSITIVE (Not Detect); Methadone Screen, Urine Not Detected (Not Detect); Opiate Screen Urine POSITIVE (Not Detect); Oxycodone Screen Urine Not Detected (Not Detect); Phencyclidine Screen Urine Not Detected (Not Detect)
[2024-02-26] MEDS: Dextrose 10 % 1,000 ML 75 ML IVCONT (19:33)
[2024-02-26 19:42] LABS: Glucose, Whole Blood 176 mg/dL (60-115)
--- NOTE | 2024-02-26 19:42 | PC.NURSE ---
POC 51, provider notified. PT medicated as per APR. IV fluids running as per APR. VSS
[2024-02-26] MEDS: Dextrose 50 % 25 GM/50 ML SYRINGE IVPUSH (19:45)
[2024-02-26 20:20] LABS: Glucose, Whole Blood 106 mg/dL (60-115)
--- NOTE | 2024-02-26 20:23 | PC.NURSE ---
verbal notification of pt poc given to Dr. Peña, hosptialist
[2024-02-26 21:04] LABS: Glucose, Whole Blood 89 mg/dL (60-115)
[2024-02-26 22:01] LABS: Glucose, Whole Blood 97 mg/dL (60-115)
[2024-02-26 22:37] LABS: Glucose, Whole Blood 86 mg/dL (60-115)
[2024-02-26] MEDS: Ampicillin Sodium/Sulbactam Na 3 GM in 0.9 % Sodium Chloride 100 ML IV (22:52)
[2024-02-26] MEDS: Enoxaparin Sodium 40 MG/0.4 ML SYRINGE SUBCUT (22:55)
--- NOTE | 2024-02-26 22:57 | P.HPHOSP_ITS ---
History of Present Illness Date of Service: 02/26/24 Attending physician on admission: Roger Peña Chief Complaint: AMS patient is a 43-year-old male with a past medical history significant for substance use disorder, arrived to ED via EMS due to altered mental status including self-injury by hitting himself. he was found outside [facility] using heroin. He denied shortness of breath or chest pain to the ED provider. He was flailing all over and was given olanzapine as a chemical restraint and fell asleep shortly after. The patient is arousable currently but will not answer my questions but acknowledges very minimally when he chooses, therefore, history unable to be obtained. Review of Systems 2 Review of Systems: Yes Unobtainable due to mental status PMFSH Medical History Active substance abuse Functional capacity: independent ambulation Social History Unable to assess alcohol history related to: Unable to respond Patient Tobacco Use Status: Current everyday Tobacco user Substance Use Type: Heroin Advance Directives: No Narrative: utox + for opiates, fentanyl, marijuana and cocaine Meds Allergies Allergy/AdvReac Type Severity Reaction Status Date / Time No Known Allergies Allergy Verified 02/26/24 11:29 Active Medications: Current Medications Acetaminophen (Acetaminophen 325 Mg Tablet) 650 mg PO Q6H PRN PRN Reason: Pain, Mild 1-3,fever,headache Calcium Carbonate (Calcium Carbonate 750 Mg Tab.Chew) 750 mg PO Q4H PRN PRN Reason: Heartburn Enoxaparin Sodium (Enoxaparin Sodium 40 Mg/0.4 Ml Syringe) 40 mg SUBCUT Q24H [facility] Last Admin: 02/26/24 22:55 Dose: 40 mg Glucose (Glucose Gel 15 Gm Gel..Gram.) 15 gm PO Q15M PRN; Protocol PRN Reason: per Hypoglycemia Standing Ord. Dextrose (D10) 1,000 mls @ 75 mls/hr IVCONT .[id number] [facility] Last Admin: 02/26/24 19:33 Dose: 75 mls/hr Dextrose (D10) 250 mls @ 750 mls/hr IV Q15M PRN; Protocol PRN Reason: per Hypoglycemia Standing Ord. Ampicillin Sodium/Sulbactam (Sodium 3 gm/ Sodium Chloride) 100 mls @ 200 mls/hr IV Q6H [facility] Last Admin: 02/26/24 22:52 Dose: 200 mls/hr Magnesium Hydroxide (Milk Of Magnesia 30 Ml Oral.Susp) 30 ml PO DAILY PRN PRN Reason: Constipation Melatonin (Melatonin 3 Mg Tablet) 6 mg PO BEDTIME PRN PRN Reason: Insomnia Ondansetron HCl (Ondansetron Hcl 4 Mg/2 Ml Vial) 4 mg IVPUSH Q8H PRN PRN Reason: Nausea and Vomiting Sodium Chloride (0.9 % Sodium Chloride Flush 3 Ml Syringe) 3 ml IVFLUSH QSHIFT [facility] Physical Exam 2 Vital Signs and Narrative: Vital Signs: Last Vital Signs Temp 97.8 F 02/26/24 20:17 Pulse 71 02/26/24 21:54 Resp 16 02/26/24 21:54 BP 114/85 02/26/24 21:54 Pulse Ox 95 02/26/24 21:54 O2 Del Method Room Air 02/26/24 21:54 BMI result Body Mass Index 21.9 General: unable to assess if patient is alert and oriented as he will answer questions. he is alert and responded yes to his name Resp: CTA bilaterally, wet cough CVS: RRR +murmur GI: +BS, NT, no distention Skin: Warm, diaphoretic Extremities: No LE edema history and physical exam difficult to obtain given patient's toxic encephalopathy Results Labs 02/26/24 15:27 02/26/24 15:14 Labs: Laboratory Results - last 24 hr 02/26/24 02/26/24 02/26/24 14:46 15:14 15:27 MCV 86.3 MCH 28.5 MCHC 33.0 RDW 12.4 Plt Count 266 MPV 9.1 L Immature Gran % (Auto) 0.8 H Neut % (Auto) 84.7 H Lymph % (Auto) 7.6 L [place] % (Auto) 6.2 Eos % (Auto) 0.5 Baso % (Auto) 0.2 Lymph # (Auto) 1.5 [place] # (Auto) 1.2 Eos # (Auto) 0.1 Baso # (Auto) 0.0 Abs Immat Gran (auto) 0.16 H Absolute Neuts (auto) 16.8 H Absolute Nucleated RBC 0.000 Nucleated RBC % (auto) 0.0 Anion Gap 16 Estim Creat Clear Calc 81.4 Estimated GFR > 60 POC Glucose Random Glucose 59 L* Lactic Acid Calcium 9.2 Total Bilirubin 0.9 AST 78 H ALT 18 Alkaline Phosphatase 51 Total Creatine Kinase 2336 H Total Protein 7.8 Albumin 4.1 Urine Color Urine Appearance Urine pH Ur Specific [place] Urine Protein Urine Glucose (UA) Urine Ketones Urine Blood Urine Nitrite Ur Leukocyte Esterase Urine Opiates Screen Ur Buprenorphine Scrn Ur Oxycodone Screen Urine Methadone Screen Urine Fentanyl Screen Ur Barbiturates Screen Ur Phencyclidine Scrn Ur Amphetamines Screen U Benzodiazepines Scrn Urine Cocaine Screen U Marijuana (THC) Screen Influenza Type A (PCR) NEGATIVE Influenza Type B (PCR) NEGATIVE RSV RNA Qual (PCR) NEGATIVE SARS-CoV-2 RNA (RT-PCR) NEGATIVE 02/26/24 02/26/24 02/26/24 16:13 17:14 18:14 MCV MCH MCHC RDW Plt Count MPV Immature Gran % (Auto) Neut % (Auto) Lymph % (Auto) [place] % (Auto) Eos % (Auto) Baso % (Auto) Lymph # (Auto) [place] # (Auto) Eos # (Auto) Baso # (Auto) Abs Immat Gran (auto) Absolute Neuts (auto) Absolute Nucleated RBC Nucleated RBC % (auto) Anion Gap Estim Creat Clear Calc Estimated GFR POC Glucose 136 H 58 L* Random Glucose Lactic Acid 0.6 Calcium Total Bilirubin AST ALT Alkaline Phosphatase Total Creatine Kinase Total Protein Albumin Urine Color Urine Appearance Urine pH Ur Specific [place] Urine Protein Urine Glucose (UA) Urine Ketones Urine Blood Urine Nitrite Ur Leukocyte Esterase Urine Opiates Screen Ur Buprenorphine Scrn Ur Oxycodone Screen Urine Methadone Screen Urine Fentanyl Screen Ur Barbiturates Screen Ur Phencyclidine Scrn Ur Amphetamines Screen U Benzodiazepines Scrn Urine Cocaine Screen U Marijuana (THC) Screen Influenza Type A (PCR) Influenza Type B (PCR) RSV RNA Qual (PCR) SARS-CoV-2 RNA (RT-PCR) 02/26/24 02/26/24 02/26/24 18:29 18:54 19:19 MCV MCH MCHC RDW Plt Count MPV Immature Gran % (Auto) Neut % (Auto) Lymph % (Auto) [place] % (Auto) Eos % (Auto) Baso % (Auto) Lymph # (Auto) [place] # (Auto) Eos # (Auto) Baso # (Auto) Abs Immat Gran (auto) Absolute Neuts (auto) Absolute Nucleated RBC Nucleated RBC % (auto) Anion Gap Estim Creat Clear Calc Estimated GFR POC Glucose 174 H 51 L* Random Glucose Lactic Acid Calcium Total Bilirubin AST ALT Alkaline Phosphatase Total Creatine Kinase Total Protein Albumin Urine Color Yellow Urine Appearance Clear Urine pH 5.5 Ur Specific [place] >= 1.030 H Urine Protein Trace Urine Glucose (UA) 100 H Urine Ketones 40 Urine Blood Negative Urine Nitrite Negative Ur Leukocyte Esterase Negative Urine Opiates Screen POSITIVE H Ur Buprenorphine Scrn Not Detected Ur Oxycodone Screen Not Detected Urine Methadone Screen Not Detected Urine Fentanyl Screen POSITIVE H Ur Barbiturates Screen Not Detected Ur Phencyclidine Scrn Not Detected Ur Amphetamines Screen Not Detected U Benzodiazepines Scrn Not Detected Urine Cocaine Screen POSITIVE H U Marijuana (THC) Screen POSITIVE H Influenza Type A (PCR) Influenza Type B (PCR) RSV RNA Qual (PCR) SARS-CoV-2 RNA (RT-PCR) 02/26/24 02/26/24 02/26/24 19:39 20:14 21:01 MCV MCH MCHC RDW Plt Count MPV Immature Gran % (Auto) Neut % (Auto) Lymph % (Auto) [place] % (Auto) Eos % (Auto) Baso % (Auto) Lymph # (Auto) [place] # (Auto) Eos # (Auto) Baso # (Auto) Abs Immat Gran (auto) Absolute Neuts (auto) Absolute Nucleated RBC Nucleated RBC % (auto) Anion Gap Estim Creat Clear Calc Estimated GFR POC Glucose 176 H 106 89 Random Glucose Lactic Acid Calcium Total Bilirubin AST ALT Alkaline Phosphatase Total Creatine Kinase Total Protein Albumin Urine Color Urine Appearance Urine pH Ur Specific [place] Urine Protein Urine Glucose (UA) Urine Ketones Urine Blood Urine Nitrite Ur Leukocyte Esterase Urine Opiates Screen Ur Buprenorphine Scrn Ur Oxycodone Screen Urine Methadone Screen Urine Fentanyl Screen Ur Barbiturates Screen Ur Phencyclidine Scrn Ur Amphetamines Screen U Benzodiazepines Scrn Urine Cocaine Screen U Marijuana (THC) Screen Influenza Type A (PCR) Influenza Type B (PCR) RSV RNA Qual (PCR) SARS-CoV-2 RNA (RT-PCR) 02/26/24 02/26/24 21:58 22:34 MCV MCH MCHC RDW Plt Count MPV Immature Gran % (Auto) Neut % (Auto) Lymph % (Auto) [place] % (Auto) Eos % (Auto) Baso % (Auto) Lymph # (Auto) [place] # (Auto) Eos # (Auto) Baso # (Auto) Abs Immat Gran (auto) Absolute Neuts (auto) Absolute Nucleated RBC Nucleated RBC % (auto) Anion Gap Estim Creat Clear Calc Estimated GFR POC Glucose 97 86 Random Glucose Lactic Acid Calcium Total Bilirubin AST ALT Alkaline Phosphatase Total Creatine Kinase Total Protein Albumin Urine Color Urine Appearance Urine pH Ur Specific [place] Urine Protein Urine Glucose (UA) Urine Ketones Urine Blood Urine Nitrite Ur Leukocyte Esterase Urine Opiates Screen Ur Buprenorphine Scrn Ur Oxycodone Screen Urine Methadone Screen Urine Fentanyl Screen Ur Barbiturates Screen Ur Phencyclidine Scrn Ur Amphetamines Screen U Benzodiazepines Scrn Urine Cocaine Screen U Marijuana (THC) Screen Influenza Type A (PCR) Influenza Type B (PCR) RSV RNA Qual (PCR) SARS-CoV-2 RNA (RT-PCR) Assessment and Plan (1) Sepsis: Status: Acute (2) Pneumonia: Status: Acute (3) Toxic encephalopathy: Status: Acute (4) Polysubstance abuse: Status: Acute (5) Hypoglycemia: Status: Acute (6) Rhabdomyolysis: Status: Acute Plan patient is a 43-year-old male with a past medical history significant for substance use disorder, arrived to ED via EMS due to altered mental status including self-injury by hitting himself. Found using heroin outside [employer] [facility] [employer]. In the ED he was found to have hypoglycemia, BS 59, which has since improved with dextrose and IVF. Chest CT + for multifocal PNA, likely aspiration. labs consistent with sepsis secondary to PNA and rhabdo. sepsis secondary to aspiration pneumonia - WBC 19.8, lactic acid normal, fever of 102.1, tachycardia and tachypnea ( likely multifactorial), blood cultures x2 pending, not severe sepsis - chest CT with multifocal pneumonia, likely aspiration - abdominopelvic CT negative - COVID/flu/ RSV negative - UA negative - started on Zosyn in ED, switch to Unasyn - monitor CBC and BMP toxic encephalopathy secondary to polysubstance abuse - U tox positive for fentanyl, opiates, cocaine and marijuana - patient given olanzapine, diphenhydramine and lorazepam due to combative behavior - unknown if history of alcohol abuse, monitor CIWA - addiction med consult hypoglycemia, secondary to sepsis - responsive to dextrose and D10 - monitor blood sugar Q2H - continue D10 75ml/hr rhabdomyolysis - CPK 2336 - given 2 L NS in ED as well as dextrose as above and remaining on D10 75 ml/hr now - recheck CPK tomorrow morning full code VTE prophylaxis: Lovenox patient with sepsis secondary to aspiration pneumonia and toxic encephalopathy secondary to polysubstance abuse complicated by rhabdomyolysis requiring admission for at least 2 midnight stay for IV fluids, IV antibiotics and monitoring. Quality Stroke Does the patient have a stroke diagnosis?: No VTE Prior VTE?: No VTE Risk Level:: Medical - moderate - high VTE Device Contraindication: Treatment Not Indicated VTE Drug Contraindication: N/A - Med Ordered
[2024-02-26 23:33] LABS: Glucose, Whole Blood 89 mg/dL (60-115)
[2024-02-27 00:36] LABS: Glucose, Whole Blood 91 mg/dL (60-115)
[2024-02-27 00:51] VITALS: BP 118/73; PULSE 81; RESP 17; O2SAT 99
[2024-02-27 05:31] VITALS: PULSE 90
--- NOTE | 2024-02-27 05:50 | PC.NURSE ---
pharmacy/pyxsis issue delaying med administration.
[2024-02-27 05:55] LABS: Glucose, Whole Blood 98 mg/dL (60-115)
[2024-02-27 05:55] LABS: Glucose, Whole Blood 97 mg/dL (60-115)
[2024-02-27 05:55] LABS: Glucose, Whole Blood 86 mg/dL (60-115)
[2024-02-27 05:55] LABS: Glucose, Whole Blood 100 mg/dL (60-115)
[2024-02-27 05:56] LABS: Hematocrit 39.5 % (42.0-52.0); Hemoglobin 12.9 g/dl (14.0-18.0); Mean Corpuscular HGB Conc 32.7 g/dl (31.0-36.0); Mean Corpuscular Hemoglobin 28.4 pg (27.0-33.0); Mean Platelet Volume 8.8 fL (9.4-12.4); Platelet Count 235 X10*3/uL (160-400); Red Blood Count 4.54 X10*6/uL (4.60-5.80); Red Cell Distribution Width 12.6 % (11.0-16.0); White Blood Count 14.6 X10*3/uL (4.8-10.8)
[2024-02-27 06:05] VITALS: BP 123/77; PULSE 85; RESP 24; O2SAT 100
[2024-02-27 06:10] LABS: Anion Gap 12 (12-20); Blood Urea Nitrogen 9 mg/dL (9-16); Carbon Dioxide 26 mmol/L (22-29); Chloride 105 mmol/L (96-108); Creatinine Clr Calc Pharmacy 100.6; Estimated Glomerular Filt Rate > 60; Glucose Random 97 mg/dL (60-115); Sodium 139 mmol/L (135-145)
--- NOTE | 2024-02-27 07:00 | PC.NURSE ---
Report taken from TESS Macias
--- NOTE | 2024-02-27 07:17 | PC.NURSE ---
Awaiting 05:00 Ampicillin per pharmacy at this time - unavailable in [facility]
[2024-02-27 08:14] LABS: Glucose, Whole Blood 85 mg/dL (60-115)
[2024-02-27 08:14] LABS: Glucose, Whole Blood 100 mg/dL (60-115)
--- NOTE | 2024-02-27 08:17 | PC.NURSE ---
Pt. stating that he wants to leave AMA at this time. SAMANTHA Baker notified.
--- NOTE | 2024-02-27 08:47 | PC.NURSE ---
D10 gtt turned off per verbal orders of PA. Per SAMANTHA Baker- if agreeable, would like pt. to stay for at least one hour after D10 gtt turned off to make sure POCs are stable.
[2024-02-27 08:49] LABS: Glucose, Whole Blood 93 mg/dL (60-115)
--- NOTE | 2024-02-27 08:57 | PC.NURSE ---
Staff offering to get splunk consultant to speak with pt. to make sure there is no misunderstanding re: whether pt. stays or leaves AMA. Pt. refusing splunk consultant
--- NOTE | 2024-02-27 09:00 | PC.NURSE ---
PA to bedside to discuss AMA with pt.
--- NOTE | 2024-02-27 09:02 | PC.NURSE ---
PA in to speak with pt. Pt. now agreeable to stay for a meal and to have his POC re-checked in one hour.
--- NOTE | 2024-02-27 09:23 | PC.NURSE ---
Attempted to complete admission, was able to complete admission risk assessment but patient refused admission Head to toe assessment stating he did not wanted to be admitted.
[2024-02-27 09:57] LABS: Glucose, Whole Blood 120 mg/dL (60-115)
--- NOTE | 2024-02-27 10:55 | P.DS_ITS ---
DS: Providers Provider Date of Service: 02/27/24 Date of admission: 02/26/24 22:37 Date of discharge: 02/27/24 Primary care physician: Unknown Physician Consults: 02/26/24 22:37 Addiction Medicine Routine Consulting Provider: Addiction Covering Reason for consultation: polysubstance use disorder Attending physician on discharge: Rich Malone Discharging clinician: Millie Motley DS: Diagnosis Discharge Diagnosis (1) Sepsis: Status: Acute (2) Pneumonia: Status: Acute (3) Toxic encephalopathy: Status: Acute (4) Polysubstance abuse: Status: Acute (5) Hypoglycemia: Status: Acute (6) Rhabdomyolysis: Status: Acute DS: Summary Hospital Course Hospital Course: From H&P on the day of admission patient is a 43-year-old male with a past medical history significant for substance use disorder, arrived to ED via EMS due to altered mental status including self-injury by hitting himself. he was found outside [facility] using heroin. He denied shortness of breath or chest pain to the ED provider. He was flailing all over and was given olanzapine as a chemical restraint and fell asleep shortly after. The patient is arousable currently but will not answer my questions but acknowledges very minimally when he chooses, therefore, history unable to be obtained. This abstract writer received message that patient wanted to leave the hospital against medical advice. He was awake, alert and oriented to person, place, time. His active medical conditions including pneumonia and hypoglycemia and rhabdomyolysi s were discussed with the patient. He did agree to stop D10 drip and have repeat point of care checked an hour later which was stable. He was able to tolerate breakfast. Following that he did not want to stay in the hospital further. It was discussed with him that hypoglycemia and untreated pneumonia can cause severe infection and or . He verbalized his understanding but elected to leave the hospital against medical advice. He was urged to return with any new or worsening symptoms. Discharge diagnosies: sepsis secondary to aspiration pneumonia toxic encephalopathy secondary to polysubstance abuse. resolved. was seen by addiction medicine prior to departure, was not interested in services/treatment hypoglycemia, secondary to sepsis rhabdomyolysis Time Attestation Discharge Coordination Time (in mins): 36 Quality: Safe Use of Opioids Does Pt have an Active Cancer Diagnosis on the Problem List?: No Quality: Stroke Does the patient have a stroke diagnosis?: No Physical Exam Vital Signs: Vital Signs: Last Vital Signs Temp 97.8 F 02/26/24 20:17 Pulse 85 02/27/24 06:05 Resp 24 H 02/27/24 06:05 BP 123/77 02/27/24 06:05 Pulse Ox 100 02/27/24 06:05 O2 Del Method Room Air 02/27/24 06:05 BMI result Body Mass Index 21.9 Const: General: comfortable, alert, awake and Physically active Nutritional Appearance: average body habitus Orientation/consciousness: patient oriented x3 Resp: Effort & Inspection: no respiratory distress and no use of accessory muscles Neuro: General: patient oriented x3 DS: Data Data Completed and Pending Labs on day of discharge: Laboratory Results - last 24 hr 02/26/24 02/26/24 02/26/24 14:46 15:14 15:27 WBC 19.8 H RBC 4.46 L Hgb 12.7 L Hct 38.5 L MCV 86.3 MCH 28.5 MCHC 33.0 RDW 12.4 Plt Count 266 MPV 9.1 L Immature Gran % (Auto) 0.8 H Neut % (Auto) 84.7 H Lymph % (Auto) 7.6 L [place] % (Auto) 6.2 Eos % (Auto) 0.5 Baso % (Auto) 0.2 Lymph # (Auto) 1.5 [place] # (Auto) 1.2 Eos # (Auto) 0.1 Baso # (Auto) 0.0 Abs Immat Gran (auto) 0.16 H Absolute Neuts (auto) 16.8 H Absolute Nucleated RBC 0.000 Nucleated RBC % (auto) 0.0 Sodium 135 Potassium 3.9 Chloride 99 Carbon Dioxide 24 Anion Gap 16 BUN 22 H Creatinine 1.05 Estim Creat Clear Calc 81.4 Estimated GFR > 60 POC Glucose Random Glucose 59 L* Lactic Acid Calcium 9.2 Total Bilirubin 0.9 AST 78 H ALT 18 Alkaline Phosphatase 51 Total Creatine Kinase 2336 H Total Protein 7.8 Albumin 4.1 Urine Color Urine Appearance Urine pH Ur Specific [place] Urine Protein Urine Glucose (UA) Urine Ketones Urine Blood Urine Nitrite Ur Leukocyte Esterase Urine Opiates Screen Ur Buprenorphine Scrn Ur Oxycodone Screen Urine Methadone Screen Urine Fentanyl Screen Ur Barbiturates Screen Ur Phencyclidine Scrn Ur Amphetamines Screen U Benzodiazepines Scrn Urine Cocaine Screen U Marijuana (THC) Screen Influenza Type A (PCR) NEGATIVE Influenza Type B (PCR) NEGATIVE RSV RNA Qual (PCR) NEGATIVE SARS-CoV-2 RNA (RT-PCR) NEGATIVE 02/26/24 02/26/24 02/26/24 16:13 17:14 18:14 WBC RBC Hgb Hct MCV MCH MCHC RDW Plt Count MPV Immature Gran % (Auto) Neut % (Auto) Lymph % (Auto) [place] % (Auto) Eos % (Auto) Baso % (Auto) Lymph # (Auto) [place] # (Auto) Eos # (Auto) Baso # (Auto) Abs Immat Gran (auto) Absolute Neuts (auto) Absolute Nucleated RBC Nucleated RBC % (auto) Sodium Potassium Chloride Carbon Dioxide Anion Gap BUN Creatinine Estim Creat Clear Calc Estimated GFR POC Glucose 136 H 58 L* Random Glucose Lactic Acid 0.6 Calcium Total Bilirubin AST ALT Alkaline Phosphatase Total Creatine Kinase Total Protein Albumin Urine Color Urine Appearance Urine pH Ur Specific [place] Urine Protein Urine Glucose (UA) Urine Ketones Urine Blood Urine Nitrite Ur Leukocyte Esterase Urine Opiates Screen Ur Buprenorphine Scrn Ur Oxycodone Screen Urine Methadone Screen Urine Fentanyl Screen Ur Barbiturates Screen Ur Phencyclidine Scrn Ur Amphetamines Screen U Benzodiazepines Scrn Urine Cocaine Screen U Marijuana (THC) Screen Influenza Type A (PCR) Influenza Type B (PCR) RSV RNA Qual (PCR) SARS-CoV-2 RNA (RT-PCR) 02/26/24 02/26/24 02/26/24 18:29 18:54 19:19 WBC RBC Hgb Hct MCV MCH MCHC RDW Plt Count MPV Immature Gran % (Auto) Neut % (Auto) Lymph % (Auto) [place] % (Auto) Eos % (Auto) Baso % (Auto) Lymph # (Auto) [place] # (Auto) Eos # (Auto) Baso # (Auto) Abs Immat Gran (auto) Absolute Neuts (auto) Absolute Nucleated RBC Nucleated RBC % (auto) Sodium Potassium Chloride Carbon Dioxide Anion Gap BUN Creatinine Estim Creat Clear Calc Estimated GFR POC Glucose 174 H 51 L* Random Glucose Lactic Acid Calcium Total Bilirubin AST ALT Alkaline Phosphatase Total Creatine Kinase Total Protein Albumin Urine Color Yellow Urine Appearance Clear Urine pH 5.5 Ur Specific [place] >= 1.030 H Urine Protein Trace Urine Glucose (UA) 100 H Urine Ketones 40 Urine Blood Negative Urine Nitrite Negative Ur Leukocyte Esterase Negative Urine Opiates Screen POSITIVE H Ur Buprenorphine Scrn Not Detected Ur Oxycodone Screen Not Detected Urine Methadone Screen Not Detected Urine Fentanyl Screen POSITIVE H Ur Barbiturates Screen Not Detected Ur Phencyclidine Scrn Not Detected Ur Amphetamines Screen Not Detected U Benzodiazepines Scrn Not Detected Urine Cocaine Screen POSITIVE H U Marijuana (THC) Screen POSITIVE H Influenza Type A (PCR) Influenza Type B (PCR) RSV RNA Qual (PCR) SARS-CoV-2 RNA (RT-PCR) 02/26/24 02/26/24 02/26/24 19:39 20:14 21:01 WBC RBC Hgb Hct MCV MCH MCHC RDW Plt Count MPV Immature Gran % (Auto) Neut % (Auto) Lymph % (Auto) [place] % (Auto) Eos % (Auto) Baso % (Auto) Lymph # (Auto) [place] # (Auto) Eos # (Auto) Baso # (Auto) Abs Immat Gran (auto) Absolute Neuts (auto) Absolute Nucleated RBC Nucleated RBC % (auto) Sodium Potassium Chloride Carbon Dioxide Anion Gap BUN Creatinine Estim Creat Clear Calc Estimated GFR POC Glucose 176 H 106 89 Random Glucose Lactic Acid Calcium Total Bilirubin AST ALT Alkaline Phosphatase Total Creatine Kinase Total Protein Albumin Urine Color Urine Appearance Urine pH Ur Specific [place] Urine Protein Urine Glucose (UA) Urine Ketones Urine Blood Urine Nitrite Ur Leukocyte Esterase Urine Opiates Screen Ur Buprenorphine Scrn Ur Oxycodone Screen Urine Methadone Screen Urine Fentanyl Screen Ur Barbiturates Screen Ur Phencyclidine Scrn Ur Amphetamines Screen U Benzodiazepines Scrn Urine Cocaine Screen U Marijuana (THC) Screen Influenza Type A (PCR) Influenza Type B (PCR) RSV RNA Qual (PCR) SARS-CoV-2 RNA (RT-PCR) 02/26/24 02/26/24 02/26/24 21:58 22:34 23:28 WBC RBC Hgb Hct MCV MCH MCHC RDW Plt Count MPV Immature Gran % (Auto) Neut % (Auto) Lymph % (Auto) [place] % (Auto) Eos % (Auto) Baso % (Auto) Lymph # (Auto) [place] # (Auto) Eos # (Auto) Baso # (Auto) Abs Immat Gran (auto) Absolute Neuts (auto) Absolute Nucleated RBC Nucleated RBC % (auto) Sodium Potassium Chloride Carbon Dioxide Anion Gap BUN Creatinine Estim Creat Clear Calc Estimated GFR POC Glucose 97 86 89 Random Glucose Lactic Acid Calcium Total Bilirubin AST ALT Alkaline Phosphatase Total Creatine Kinase Total Protein Albumin Urine Color Urine Appearance Urine pH Ur Specific [place] Urine Protein Urine Glucose (UA) Urine Ketones Urine Blood Urine Nitrite Ur Leukocyte Esterase Urine Opiates Screen Ur Buprenorphine Scrn Ur Oxycodone Screen Urine Methadone Screen Urine Fentanyl Screen Ur Barbiturates Screen Ur Phencyclidine Scrn Ur Amphetamines Screen U Benzodiazepines Scrn Urine Cocaine Screen U Marijuana (THC) Screen Influenza Type A (PCR) Influenza Type B (PCR) RSV RNA Qual (PCR) SARS-CoV-2 RNA (RT-PCR) 02/27/24 02/27/24 02/27/24 00:33 01:48 03:06 WBC RBC Hgb Hct MCV MCH MCHC RDW Plt Count MPV Immature Gran % (Auto) Neut % (Auto) Lymph % (Auto) [place] % (Auto) Eos % (Auto) Baso % (Auto) Lymph # (Auto) [place] # (Auto) Eos # (Auto) Baso # (Auto) Abs Immat Gran (auto) Absolute Neuts (auto) Absolute Nucleated RBC Nucleated RBC % (auto) Sodium Potassium Chloride Carbon Dioxide Anion Gap BUN Creatinine Estim Creat Clear Calc Estimated GFR POC Glucose 91 86 97 Random Glucose Lactic Acid Calcium Total Bilirubin AST ALT Alkaline Phosphatase Total Creatine Kinase Total Protein Albumin Urine Color Urine Appearance Urine pH Ur Specific [place] Urine Protein Urine Glucose (UA) Urine Ketones Urine Blood Urine Nitrite Ur Leukocyte Esterase Urine Opiates Screen Ur Buprenorphine Scrn Ur Oxycodone Screen Urine Methadone Screen Urine Fentanyl Screen Ur Barbiturates Screen Ur Phencyclidine Scrn Ur Amphetamines Screen U Benzodiazepines Scrn Urine Cocaine Screen U Marijuana (THC) Screen Influenza Type A (PCR) Influenza Type B (PCR) RSV RNA Qual (PCR) SARS-CoV-2 RNA (RT-PCR) 02/27/24 02/27/24 02/27/24 04:23 04:59 05:39 WBC 14.6 H RBC 4.54 L Hgb 12.9 L Hct 39.5 L MCV 87.0 MCH 28.4 MCHC 32.7 RDW 12.6 Plt Count 235 MPV 8.8 L Immature Gran % (Auto) Neut % (Auto) Lymph % (Auto) [place] % (Auto) Eos % (Auto) Baso % (Auto) Lymph # (Auto) [place] # (Auto) Eos # (Auto) Baso # (Auto) Abs Immat Gran (auto) Absolute Neuts (auto) Absolute Nucleated RBC 0.000 Nucleated RBC % (auto) 0.0 Sodium 139 Potassium 4.0 Chloride 105 Carbon Dioxide 26 Anion Gap 12 BUN 9 Creatinine 0.85 Estim Creat Clear Calc 100.6 Estimated GFR > 60 POC Glucose 100 98 Random Glucose 97 Lactic Acid Calcium 9.0 Total Bilirubin AST ALT Alkaline Phosphatase Total Creatine Kinase 1107 H Total Protein Albumin Urine Color Urine Appearance Urine pH Ur Specific [place] Urine Protein Urine Glucose (UA) Urine Ketones Urine Blood Urine Nitrite Ur Leukocyte Esterase Urine Opiates Screen Ur Buprenorphine Scrn Ur Oxycodone Screen Urine Methadone Screen Urine Fentanyl Screen Ur Barbiturates Screen Ur Phencyclidine Scrn Ur Amphetamines Screen U Benzodiazepines Scrn Urine Cocaine Screen U Marijuana (THC) Screen Influenza Type A (PCR) Influenza Type B (PCR) RSV RNA Qual (PCR) SARS-CoV-2 RNA (RT-PCR) 02/27/24 02/27/24 02/27/24 05:58 08:10 08:45 WBC RBC Hgb Hct MCV MCH MCHC RDW Plt Count MPV Immature Gran % (Auto) Neut % (Auto) Lymph % (Auto) [place] % (Auto) Eos % (Auto) Baso % (Auto) Lymph # (Auto) [place] # (Auto) Eos # (Auto) Baso # (Auto) Abs Immat Gran (auto) Absolute Neuts (auto) Absolute Nucleated RBC Nucleated RBC % (auto) Sodium Potassium Chloride Carbon Dioxide Anion Gap BUN Creatinine Estim Creat Clear Calc Estimated GFR POC Glucose 85 100 93 Random Glucose Lactic Acid Calcium Total Bilirubin AST ALT Alkaline Phosphatase Total Creatine Kinase Total Protein Albumin Urine Color Urine Appearance Urine pH Ur Specific [place] Urine Protein Urine Glucose (UA) Urine Ketones Urine Blood Urine Nitrite Ur Leukocyte Esterase Urine Opiates Screen Ur Buprenorphine Scrn Ur Oxycodone Screen Urine Methadone Screen Urine Fentanyl Screen Ur Barbiturates Screen Ur Phencyclidine Scrn Ur Amphetamines Screen U Benzodiazepines Scrn Urine Cocaine Screen U Marijuana (THC) Screen Influenza Type A (PCR) Influenza Type B (PCR) RSV RNA Qual (PCR) SARS-CoV-2 RNA (RT-PCR) 02/27/24 09:55 WBC RBC Hgb Hct MCV MCH MCHC RDW Plt Count MPV Immature Gran % (Auto) Neut % (Auto) Lymph % (Auto) [place] % (Auto) Eos % (Auto) Baso % (Auto) Lymph # (Auto) [place] # (Auto) Eos # (Auto) Baso # (Auto) Abs Immat Gran (auto) Absolute Neuts (auto) Absolute Nucleated RBC Nucleated RBC % (auto) Sodium Potassium Chloride Carbon Dioxide Anion Gap BUN Creatinine Estim Creat Clear Calc Estimated GFR POC Glucose 120 H Random Glucose Lactic Acid Calcium Total Bilirubin AST ALT Alkaline Phosphatase Total Creatine Kinase Total Protein Albumin Urine Color Urine Appearance Urine pH Ur Specific [place] Urine Protein Urine Glucose (UA) Urine Ketones Urine Blood Urine Nitrite Ur Leukocyte Esterase Urine Opiates Screen Ur Buprenorphine Scrn Ur Oxycodone Screen Urine Methadone Screen Urine Fentanyl Screen Ur Barbiturates Screen Ur Phencyclidine Scrn Ur Amphetamines Screen U Benzodiazepines Scrn Urine Cocaine Screen U Marijuana (THC) Screen Influenza Type A (PCR) Influenza Type B (PCR) RSV RNA Qual (PCR) SARS-CoV-2 RNA (RT-PCR) Discharge Plan Discharge Patient Disposition: Left Against Medical Advice Discharge Diagnosis: pneumonia Referrals: Physician,Unknown J [Primary Care Provider] - 1 Week Discharge Medications: No Action buprenorphine-naloxone [Suboxone] 8-2 mg film 2 film buccal Q24H 5 Days Qty: 10 0RF Rx Instructions: place 1 film on inside of (each) cheek Discharge Orders: Discharge Order (Routine); Ordered 02/27/24 Ordered By: Millie Motley Stand Alone Forms: Against Medical Advice Print Language: Micronesian Care Plan Goals: left ama Health Concerns: left ama Plan of Treatment: left ama Assessment: left ama
--- NOTE | 2024-02-27 12:44 | MHC.RECOVRN ---
Briefly met with pt in ED13 after consult placed to Addiction Medicine for polysubstance use. Pt presented to [facility] via EMS on 02/25 dye to altered mental status including self-injury by hitting himself. In the ED he was found to have hypoglycemia, BS 59, which has improved. Pt admitted for hypoglycemia and multifocal PNA, likely aspiration, as well as sepsis secondary to PNA and rhabdomyolysis. Pt requesting to conduct self directed discharge this morning. Pt laying in bed, awake, alert, engages in conversation, requesting to be discharged. Pt reports he has been using a lot and is currently experiencing withdrawal. Visibly diaphoretic. Pt offered MOUD to address withdrawal symptoms, pt declined. Explained MOUD could be used while admitted, does not need to be continued after discharge if pt does not want to. Pt continued to decline. Offered biophysics teacher services in case of any language barrier, pt declined. Pt denies questions or concerns for t/w. Discussed with hospitalist, Jennifer Mendez APRN, as well as pts RN.
== END 2024-02-27 17:00 | disposition left against medical advice (07) | DRG 816 ==
LOC: HO.ED 18:19 → HO.EDOVER 02-27 00:25
PROVIDERS: Physician Assistant; Student in an Organized Health Care Education/Training Program; Admitting Provider Student in an Organized Health Care Education/Training Program; Emergency Provider Emergency Medicine; Visit Provider Physician Assistant Medical
DX: T40.1X1A Poisoning by heroin, accidental (unintentional), initial encounter (principal); J69.0 Pneumonitis due to inhalation of food and vomit; A41.9 Sepsis, unspecified organism; G92.8 Other toxic encephalopathy; M62.82 Rhabdomyolysis; F11.20 Opioid dependence, uncomplicated; F17.210 Nicotine dependence, cigarettes, uncomplicated; E16.2 Hypoglycemia, unspecified; Z71.6 Tobacco abuse counseling; F19.10 Other psychoactive substance abuse, uncomplicated; Z20.822 Contact with and (suspected) exposure to COVID-19; Z59.02 Unsheltered homelessness
CPT/HCPCS: 0241U; 36415; 71260; 74177; 80048; 80053; 80307; 81003; 82550; 82947; 83605; 85025; 85027; 87040; 93005; 99285; J0131; J0295; J1200; J1650; J2060; J2359; J2543; Q9967

== ENCOUNTER → 2024-02-26 11:27 | Outpatient (BNV) | payer MEDICAID, SELFPAY | PROVIDERS: Emergency Provider Emergency Medicine; Visit Provider Internal Medicine | DX: R00.0 Tachycardia, unspecified (principal) | CPT/HCPCS: 93010 ==

== ENCOUNTER → 2024-02-26 11:34 | Outpatient (BNV) | payer MEDICAID, SELFPAY | PROVIDERS: Emergency Provider Emergency Medicine; Visit Provider Physician Assistant | DX: A41.9 Sepsis, unspecified organism (principal); J18.9 Pneumonia, unspecified organism; G92.9 Unspecified toxic encephalopathy; F19.10 Other psychoactive substance abuse, uncomplicated; E16.2 Hypoglycemia, unspecified; M62.82 Rhabdomyolysis | CPT/HCPCS: 99239 ==